=== PATIENT | male | born 1965 | race Caucasian/White ===

== ENCOUNTER 2017-06-28 01:59 | Inpatient (IN) | payer BC ==
--- NOTE | 2017-06-28 02:23 | ED ---
General Adult HPI - General Chief complaint: GI Bleed Stated complaint: blood in stool Time Seen by Provider: 06/28/17 02:12 Source: patient, RN notes reviewed, old records reviewed Mode of arrival: ambulatory - History of Present Illness Initial comments: 52-year-old male presents for evaluation of rectal bleeding. Patient was at work, had used the restroom, had one large episode of bright red blood. There was no stool at this time, just gas according to the patient. Patient states he has had some intermittent bleeding over the past several days. He does have hemorrhoids. Patient denies any abdominal pain or rectal pain with this episode. No recent history of constipation. Patient states he had a colonoscopy several years ago though issues that he is aware of. Patient has past medical history of CAD, atrial fibrillation, he is currently on Eliquis. Denies chest pain, denies palpitations, denies shortness of breath. - Related Data Home Medications Medication Instructions Recorded Confirmed ALPRAZolam 0.5 mg PO TID 07/25/14 06/28/17 Cyanocobalamin [Vitamin B-12] 1,000 mcg PO DAILY 07/25/14 06/28/17 Multivitamin [Men's Multi-Vitamin] 1 tab PO DAILY 07/25/14 06/28/17 Aspirin 81 mg PO DAILY 10/24/14 06/28/17 Atorvastatin [Lipitor] 80 mg PO DAILY 10/24/14 06/28/17 Apixaban [Eliquis] 5 mg PO BID 03/31/17 06/28/17 Flecainide [Tambocor] 50 mg PO Q12HR 06/28/17 06/28/17 Previous Rx's Medication Instructions Recorded Nitroglycerin Sl Tabs [Nitrostat] 0.4 mg SUBLINGUAL Q5M PRN #25 tab 07/27/14 Losartan [Cozaar] 50 mg PO DAILY #90 tab 03/31/17 Metoprolol Succinate [Toprol XL] 50 mg PO DAILY #90 tab.er.24h 03/31/17 Allergies Allergy/AdvReac Type Severity Reaction Status Date / Time Penicillins Allergy Unknown Verified 03/30/17 10:59 Childhood Review of Systems ROS Statement: Those systems with pertinent positive or pertinent negative responses have been documented in the HPI. ROS Other: All systems not noted in ROS Statement are negative. Past Medical History Past Medical History: Atrial Fibrillation, Hyperlipidemia, Hypertension Additional Past Medical History / Comment(s): 07/26/14 Pt admitted to [facility] care following RCA stenting for chest pain. Other HX: TIAGO HEELS RECENT STERIOD INJECTIONS 2 weks ago due to heel pain from falling arches causing heel muscle stretch. History of Any Multi-Drug Resistant Organisms: None Reported Past Surgical History: Ablation, Heart Catheterization With Stent Additional Past Surgical History / Comment(s): 07/26/14 RCA stenting Past Anesthesia/Blood Transfusion Reactions: No Reported Reaction Date of Last Stent Placement:: 07/26/14 Past Psychological History: Anxiety Smoking Status: Former smoker Past Alcohol Use History: Daily Past Drug Use History: None Reported - Past Family History Father Family Medical History: CVA/TIA Additional Family Medical History / Comment(s): Father of brain stem CVA Mother Family Medical History: Cancer Additional Family Medical History / Comment(s): Mother is living. General Exam General appearance: alert, in no apparent distress Head exam: Present: atraumatic, normocephalic Eye exam: Present: normal appearance, PERRL, EOMI ENT exam: Present: normal exam Neck exam: Present: normal inspection. Absent: tenderness, meningismus Respiratory exam: Present: normal lung sounds bilaterally. Absent: respiratory distress, wheezes Cardiovascular Exam: Present: regular rate, normal rhythm GI/Abdominal exam: Present: soft. Absent: distended, tenderness, guarding, rebound Rectal exam: Present: normal rectal tone, hemorrhoids (External hemorrhoid, no active bleeding). Absent: black stool, bloody stool, fecal impaction Extremities exam: Present: normal inspection, normal capillary refill. Absent: pedal edema Neurological exam: Present: alert, oriented X3, CN II-XII intact. Absent: motor sensory deficit Psychiatric exam: Present: normal affect, normal mood Skin exam: Present: warm, dry, intact. Absent: cyanosis, diaphoretic Course Vital Signs 06/28/17 06/28/17 06/28/17 02:01 03:20 03:38 Temperature 98.9 F Pulse Rate 97 130 H 130 H Respiratory 18 16 19 Rate Blood Pressure 145/80 134/107 150/111 O2 Sat by Pulse 98 95 95 Oximetry EKG Findings - EKG Comments: EKG Findings:: EKG shows atrial flutter with variable AV block and PVC, there is a ventricular rate of 139, QRS duration 84, QTC 407, no ST segment elevation Medical Decision Making - Medical Decision Making 52-year-old male presenting with GI bleed. On examination patient does have external hemorrhoids, no active bleeding at the time my evaluation. Hemoglobin is 15.0 which is stable. Other laboratory studies are unremarkable. While in the emergency Department patient does go into a flutter with rapid ventricular response rate of 140s. Blood pressure remained stable. He is currently on flecainide and metoprolol, no recent changes in medication. He did take his medications today. He is asymptomatic, no chest pain, no dyspnea, no palpitations. IV metoprolol and heart rate is improving. Patient will be admitted for GI consultation for hematochezia and cardiology consultation for atrial flutter with RVR. - Lab Data Result diagrams: 06/28/17 02:25 06/28/17 02:25 Lab Results 06/28/17 06/28/17 06/28/17 Range/Units 02:25 02:25 02:25 WBC 5.2 (3.8-10.6) k/uL RBC 4.60 (4.30-5.90) m/uL Hgb 15.0 (13.0-17.5) gm/dL Hct 42.7 (39.0-53.0) % MCV 92.9 (80.0-100.0) fL MCH 32.6 (25.0-35.0) pg MCHC 35.1 (31.0-37.0) g/dL RDW 12.3 (11.5-15.5) % Plt Count 153 (150-450) k/uL Neutrophils % 55 % Lymphocytes % 27 % Monocytes % 12 % Eosinophils % 1 % Basophils % 1 % Neutrophils # 2.9 (1.3-7.7) k/uL Lymphocytes # 1.4 (1.0-4.8) k/uL Monocytes # 0.6 (0-1.0) k/uL Eosinophils # 0.1 (0-0.7) k/uL Basophils # 0.1 (0-0.2) k/uL PT 10.2 (9.0-12.0) sec INR 1.0 (<1.2) APTT 26.4 (22.0-30.0) sec Sodium 140 (137-145) mmol/L Potassium 4.1 (3.5-5.1) mmol/L Chloride 103 (98-107) mmol/L Carbon Dioxide 25 (22-30) mmol/L Anion Gap 12 mmol/L BUN 16 (9-20) mg/dL Creatinine 0.70 (0.66-1.25) mg/dL Est GFR (CKD-EPI)AfAm >90 (>60 ml/min/1.73 sqM) Est GFR (CKD-EPI)NonAf >90 (>60 ml/min/1.73 sqM) Glucose 112 H (74-99) mg/dL Plasma Lactic Acid Humberto (0.7-2.0) mmol/L Calcium 9.9 (8.4-10.2) mg/dL Magnesium 1.8 (1.6-2.3) mg/dL Total Bilirubin 1.4 H (0.2-1.3) mg/dL AST 39 (17-59) U/L ALT 25 (21-72) U/L Alkaline Phosphatase 70 (38-126) U/L Total Protein 7.1 (6.3-8.2) g/dL Albumin 4.4 (3.5-5.0) g/dL Blood Type Blood Type Recheck Antibody Screen Spec Expiration Date 06/28/17 06/28/17 Range/Units 02:36 02:36 WBC (3.8-10.6) k/uL RBC (4.30-5.90) m/uL Hgb (13.0-17.5) gm/dL Hct (39.0-53.0) % MCV (80.0-100.0) fL MCH (25.0-35.0) pg MCHC (31.0-37.0) g/dL RDW (11.5-15.5) % Plt Count (150-450) k/uL Neutrophils % % Lymphocytes % % Monocytes % % Eosinophils % % Basophils % % Neutrophils # (1.3-7.7) k/uL Lymphocytes # (1.0-4.8) k/uL Monocytes # (0-1.0) k/uL Eosinophils # (0-0.7) k/uL Basophils # (0-0.2) k/uL PT (9.0-12.0) sec INR (<1.2) APTT (22.0-30.0) sec Sodium (137-145) mmol/L Potassium (3.5-5.1) mmol/L Chloride (98-107) mmol/L Carbon Dioxide (22-30) mmol/L Anion Gap mmol/L BUN (9-20) mg/dL Creatinine (0.66-1.25) mg/dL Est GFR (CKD-EPI)AfAm (>60 ml/min/1.73 sqM) Est GFR (CKD-EPI)NonAf (>60 ml/min/1.73 sqM) Glucose (74-99) mg/dL Plasma Lactic Acid Humberto 1.6 (0.7-2.0) mmol/L Calcium (8.4-10.2) mg/dL Magnesium (1.6-2.3) mg/dL Total Bilirubin (0.2-1.3) mg/dL AST (17-59) U/L ALT (21-72) U/L Alkaline Phosphatase (38-126) U/L Total Protein (6.3-8.2) g/dL Albumin (3.5-5.0) g/dL Blood Type A Positive Blood Type Recheck CABO Indicated Antibody Screen NEGATIVE Spec Expiration Date 07/01/2017 - 5874 Critical Care Time Critical Care Time: Yes Total Critical Care Time: 35 Disposition Clinical Impression: Hematochezia, Atrial flutter with rapid ventricular response Disposition: ADMITTED IP TO THIS [facility] Condition: Stable Referrals: Carrington Abdi DO [Primary Care Provider] - 1-2 days Decision to Admit Reason: Admit from EC Decision Date: 06/28/17 Decision Time: 03:48
[2017-06-28 02:34] LABS: Basophils # (A) 0.1 k/uL (0-0.2); Basophils % (A) 1 %; Eosinophils # (A) 0.1 k/uL (0-0.7); Eosinophils % (A) 1 %; HCT 42.7 % (39.0-53.0); Lymphocytes # (A) 1.4 k/uL (1.0-4.8); Lymphocytes % (A) 27 %; MCH 32.6 pg (25.0-35.0); MCHC 35.1 g/dL (31.0-37.0); MCV 92.9 fL (80.0-100.0); Mean Platelet Volume 8.6; Monocytes # (A) 0.6 k/uL (0-1.0); Monocytes % (A) 12 %; Neutrophils # (A) 2.9 k/uL (1.3-7.7); Neutrophils % (A) 55 %; Platelet Count 153 k/uL (150-450); RDW 12.3 % (11.5-15.5); WBC 5.2 k/uL (3.8-10.6)
[2017-06-28 02:43] LABS: ALT 25 U/L (21-72); AST 39 U/L (17-59); Albumin 4.4 g/dL (3.5-5.0); Alkaline Phosphatase 70 U/L (38-126); Anion Gap 12 mmol/L; Blood Urea Nitrogen 16 mg/dL (9-20); Calcium 9.9 mg/dL (8.4-10.2); Carbon Dioxide 25 mmol/L (22-30); Chloride 103 mmol/L (98-107); Glucose 112 mg/dL (74-99); Magnesium 1.8 mg/dL (1.6-2.3); Potassium 4.1 mmol/L (3.5-5.1); Sodium 140 mmol/L (137-145); Total Bilirubin 1.4 mg/dL (0.2-1.3); Total Protein 7.1 g/dL (6.3-8.2)
[2017-06-28 02:48] LABS: Partial Thromboplastin Time 26.4 sec (22.0-30.0); Prothrombin Time 10.2 sec (9.0-12.0)
[2017-06-28] MEDS ORDERED: SODIUM CHLORIDE 0.9% 500 ML IV ONE (03:11)
[2017-06-28] MEDS: METOPROLOL TARTRATE 5 MG/5 ML VIAL IVP SCH ×10 (03:12→22:57)
[2017-06-28] MEDS ORDERED: NALOXONE 0.4 MG/ML 1 ML VIAL IV PRN (03:48)
[2017-06-28] MEDS: SODIUM CHLORIDE 0.9% 1,000 ML IV SCH ×2 (04:04→18:29)
[2017-06-28] MEDS: DILTIAZEM 50 MG in SODIUM CHLORIDE 0.9% 40 ML IV ONE ×2 (04:45→09:46)
[2017-06-28] MEDS ORDERED: METOPROLOL SUCCINATE (ER) 50 MG TAB.ER.24H PO SCH ×2 (09:00→21:00)
[2017-06-28] MEDS ORDERED: ATORVASTATIN 80 MG TAB PO SCH ×2 (09:00→21:00)
[2017-06-28] MEDS ORDERED: FLECAINIDE 50 MG TAB PO SCH (09:00)
--- NOTE | 2017-06-28 10:56 | P.CONS ---
History of Present Illness - Reason for Consult Consult date: 06/28/17 rectal bleeding Requesting physician: Carl Hemphill - History of Present Illness 52-year-old male with a past medical history of atrial fibrillation ablation maintained on aspirin Eliquis, cardiomyopathy, CAD PCI stent 2014, anxiety, internal hemorrhoids, hyperlipidemia, and hypertension. Patient presented with acute painless rectal bleeding that started yesterday at work. Patient stated he had a few bowel movements that were blood-tinged and when wiping witnessed a fair amount of blood on tissue. Hemoglobin 15. white count 5.2. He went 16. Creatinine 0.7. INR 1.0. Platelet 153. Colonoscopy October 2014 reported grade 2 internal hemorrhoids. Patient was placed on dual antiplatelet medications I year ago for his history of arrhythmia. Denies abdominal pain. No reports of fever chills hematemesis or melena. No recent NSAIDs or excessive usage of aspirin. Presently resting comfortably in the emergency room with heart rhythm in the 140s EKG reported atrial flutter. Review of Systems Constitutional: Denies fever, chills, sweats, weight gain, or loss. HEENT: Negative for migraines, blurred vision or loss, earaches, drainage, tinnitus, oral mucosal lesions, dysphagia, or odynophagia. Cardiac: CAD. Cardiac myopathy. Hypertension. Hyperlipidemia. History of atrial fibrillation. Respiratory: Negative for shortness of breath, hemoptysis, cough, or sputum production. Gastrointestinal: See HPI for pertinent findings. Genitourinary: Negative for hematuria, urgency, frequency, polyuria, dysuria, or penile discharge. Musculoskeletal: Negative for muscle aches, swelling, arthritis, and arthralgias. Neurologic: Negative for stroke or TIA. Endocrine: Negative for thyroid problems. Skin: Negative for rash or itching. Psychiatric: History of anxiety. Past Medical History Past Medical History: Atrial Fibrillation, Hyperlipidemia, Hypertension Additional Past Medical History / Comment(s): 07/26/14 Pt admitted to selective care following RCA stenting for chest pain. Other HX: TIAGO HEELS RECENT STERIOD INJECTIONS 2 weks ago due to heel pain from falling arches causing heel muscle stretch. History of Any Multi-Drug Resistant Organisms: None Reported Past Surgical History: Ablation, Heart Catheterization With Stent Additional Past Surgical History / Comment(s): 07/26/14 RCA stenting Past Anesthesia/Blood Transfusion Reactions: No Reported Reaction Date of Last Stent Placement:: 07/26/14 Past Psychological History: Anxiety Smoking Status: Former smoker Past Alcohol Use History: Daily Past Drug Use History: None Reported - Past Family History Father Family Medical History: CVA/TIA Additional Family Medical History / Comment(s): Father of brain stem CVA Mother Family Medical History: Cancer Additional Family Medical History / Comment(s): Mother is living. Medications and Allergies Home Medications Medication Instructions Recorded Confirmed Type ALPRAZolam 0.5 mg PO TID PRN 07/25/14 06/28/17 History Cyanocobalamin [Vitamin B-12] 1,000 mcg PO DAILY 07/25/14 06/28/17 History Multivitamin [Men's Multi-Vitamin] 1 tab PO DAILY 07/25/14 06/28/17 History Nitroglycerin Sl Tabs [Nitrostat] 0.4 mg SUBLINGUAL Q5M PRN #25 tab 07/27/14 Rx Aspirin 81 mg PO DAILY 10/24/14 06/28/17 History Atorvastatin [Lipitor] 80 mg PO DAILY 10/24/14 06/28/17 History Apixaban [Eliquis] 5 mg PO BID 03/31/17 06/28/17 History Ascorbic Acid [Vitamin C] 1,000 mg PO DAILY 06/28/17 06/28/17 History Flecainide [Tambocor] 50 mg PO Q12HR 06/28/17 06/28/17 History Losartan [Cozaar] 50 mg PO HS 06/28/17 06/28/17 History Metoprolol Succinate (ER) [Toprol 75 mg PO DAILY 06/28/17 06/28/17 History Xl] Allergies Allergy/AdvReac Type Severity Reaction Status Date / Time Penicillins Allergy Unknown Verified 06/28/17 07:27 Childhood Physical Exam Vitals: Vital Signs Temp Pulse Resp BP Pulse Ox 06/28/17 06:00 105 H 15 120/98 95 06/28/17 05:00 134 H 14 139/103 96 06/28/17 04:00 130 H 16 146/102 96 06/28/17 03:38 130 H 19 150/111 95 06/28/17 03:20 130 H 16 134/107 95 06/28/17 02:01 98.9 F 97 18 145/80 98 Intake and Output 06/27/17 06/28/17 06/28/17 22:59 06:59 14:59 Intake Total 10 18.833 Balance 10 18.833 Intake: Intake, IV Titration 10 18.833 Amount Diltiazem 50 mg In Sodium 10 18.833 Chloride 0.9% 40 ml @ 5 MG/HR 5 mls/hr IV .Q10H ONE Rx#:[id number] Other: Weight 70.307 kg General appearance: The patient is alert, oriented, in no acute distress. HET: Head is normocephalic and atraumatic. Pupils are equal and reactive. Oropharynx is clear without lesions. Neck: Supple without lymphadenopathy. Trachea midline. Heart: S1 S2. Regular rate and rhythm. Lungs: No crackles or wheezes are heard. Abdomen: Soft, nontender, nondistended with bowel sounds. No peritoneal signs. No palpable organomegaly or masses. Extremities: Normal skin color and turgor. No cyanosis, rash, ulceration, clubbing, or edema. Radial and pedal pulses are 2/4 bilaterally. Neurological: No focal deficits. Strength and sensation are grossly intact. Results CBC & Chem 7: 06/28/17 02:25 06/28/17 02:25 Labs: Abnormal Lab Results - Last 24 Hours (Table) 06/28/17 Range/Units 02:25 Glucose 112 H (74-99) mg/dL Total Bilirubin 1.4 H (0.2-1.3) mg/dL Assessment and Plan (1) Rectal bleeding Narrative/Plan: 52-year-old male with a history of CAD cardiomyopathy and arrhythmia maintained on dual antiplatelet therapy presents with arrhythmia and painless rectal bleeding with history of grade 2 internal hemorrhoids status post colonoscopy October 2014. Suspect rectal bleeding is perirectal in nature. Current Visit: Yes Status: Acute Code(s): K62.5 - HEMORRHAGE OF ANUS AND RECTUM SNOMED Code(s): 72998477 Plan: 1. Anusol suppository 25 mg twice daily. 2. Diet as tolerated. Inpatient endoscopic exams are not planned at this time but contingent on clinical course. CBC monitoring. Cardiology consultation. We'll continue to follow with you. Thank you for this kind referral and the opportunity to participate in the care of your patient. This consultation was discussed with Dr. Sethi. The impression and plan of care have been directed as dictated.
[2017-06-28] MEDS ORDERED: METOPROLOL SUCCINATE (ER) 50 MG TAB.ER.24H PO STA (11:10)
[2017-06-28] MEDS ORDERED: FLECAINIDE 50 MG TAB PO STA (11:10)
--- NOTE | 2017-06-28 11:29 | CONS ---
CONSULTATION CHIEF COMPLAINT: Atrial flutter with rapid ventricular rate. Hemant is a 52-year-old gentleman with history of paroxysmal atrial flutter, status post unsuccessful ablation, hypertension, dyslipidemia, and prior history of lower GI bleed, who presented to the hospital having had 2 episodes of rectal bleeding while at work. This was sudden onset, profuse and then resolved spontaneously. At the time of my evaluation, he appears comfortable at rest and is free of symptoms. Remains in atrial flutter with poorly controlled ventricular rate. The patient has had a colonoscopy in the past and was thought to be normal. Patient is currently on Eliquis for his atrial flutter. PAST MEDICAL HISTORY: Significant for hypertension, atrial tachyarrhythmia status post ablation, dyslipidemia. CURRENT MEDICATIONS: Include Xanax, aspirin, atorvastatin, Eliquis, flecainide 50 b.i.d., Toprol-XL 50 mg daily, losartan 50 mg daily. ALLERGIES: Allergic to PENICILLIN. FAMILY HISTORY: Negative for premature coronary artery disease. SOCIAL HISTORY: Negative for smoking and history of drug abuse. REVIEW OF SYSTEMS: HEENT is unremarkable. CARDIAC: As described above. RESPIRATORY: Negative. GI: Significant for rectal bleeding. GENITOURINARY: Negative. MUSCULOSKELETAL: Significant for arthritis. PSYCHOSOCIAL: Negative. ENDOCRINE: Negative. DERMATOLOGIC: Negative. CONSTITUTIONAL: Negative. ONCOLOGICAL: Negative. Rest of the system review is not relevant. PAST SURGICAL HISTORY: Significant for ablation and apparently stenting of the right coronary artery. PHYSICAL EXAM: Patient is comfortable at rest. Heart rate is varying between 105 to 130 beats per minute. Blood pressure is 120/98, respiratory rate is 18, O2 sat is 95% on room air. There is no jugular venous distention. Carotid upstroke is normal. There is no bruit. Chest exam reveals diminished air entry at the bases. Heart exam reveals first and second heart sounds. Regular rhythm. Abdomen is soft, nontender. Exam of extremities did not reveal any edema. Peripheral pulses are palpable LABS: Show that the hemoglobin is normal at 15. Potassium is 4.1, creatinine is 0.7. AST and ALT are within normal limits. ASSESSMENT: 1. Atypical atrial flutter with rapid ventricular rate. 2. Lower gastrointestinal bleed, probably is related to his underlying hemorrhoids. Hemoglobin is stable. I am going to increase the dose of Tambocor to 100 mg b.i.d., increase the dose of Toprol-XL to 100 mg daily. Stop the intravenous Cardizem, cut down the dose of losartan and to hold the Eliquis and aspirin for today and once the heart rate is better controlled, we should be able to let him go home tomorrow. ACE / LESLIE: [id number] /
[2017-06-28 13:18] LABS: Basophils % (A) 1 %; Eosinophils # (A) 0.1 k/uL (0-0.7); Eosinophils % (A) 1 %; HCT 43.3 % (39.0-53.0); HGB 14.3 gm/dL (13.0-17.5); Lymphocytes # (A) 1.2 k/uL (1.0-4.8); Lymphocytes % (A) 22 %; MCV 94.1 fL (80.0-100.0); Mean Platelet Volume 10.1; Monocytes # (A) 0.5 k/uL (0-1.0); Monocytes % (A) 10 %; Neutrophils # (A) 3.4 k/uL (1.3-7.7); Neutrophils % (A) 63 %; Platelet Count 145 k/uL (150-450); RDW 12.4 % (11.5-15.5); WBC 5.3 k/uL (3.8-10.6)
[2017-06-28 13:30] LABS: Anion Gap 8 mmol/L; Blood Urea Nitrogen 13 mg/dL (9-20); Calcium 9.3 mg/dL (8.4-10.2); Carbon Dioxide 28 mmol/L (22-30); Chloride 102 mmol/L (98-107); Glucose 86 mg/dL (74-99); Potassium 4.1 mmol/L (3.5-5.1); Sodium 138 mmol/L (137-145)
[2017-06-28] MEDS ORDERED: DILTIAZEM 5 MG/1 ML (25ML VIAL) IV ONE ×2 (14:23)
[2017-06-28] MEDS ORDERED: SODIUM CHLORIDE 0.9% 100 ML BAG ONE (14:23)
[2017-06-28] MEDS ORDERED: NITROGLYCERIN SL TABS 0.4 MG TAB SUBLINGUAL PRN (15:25)
[2017-06-28] MEDS ORDERED: ALPRAZolam 0.5 MG TAB PO PRN (15:25)
--- NOTE | 2017-06-28 15:50 | P.HPIM ---
History of Present Illness Patient is a 52-year-old gentleman with known history of atrial fibrillation and is on Eliquis 5 mg twice a day along with aspirin for the carotid disease and PCI and stent placement in 2014 came in with complaints of 1 episode of significant hematochezia with the les red blood per rectum patient had history of ever voids in the past had a colonoscopy in 2014 which showed grade 2 hemorrhoids patient did not have any bleeding here today. Patient did take his heart rate control medications last night and did not receive any of his heart rate control medications here subsequently went into atrial fibrillation patient's dose of flecainide and metoprolol were increased patient is mildly hypotensive expected to improve with improvement in his heart rate. Patient had history of atrial fibrillation ablation procedure in the past which was failed and patient subsequently started on flecainide and metoprolol. Since patient did not have any bright red blood per rectum patient was initiated back on anti-coagulation by cardiology although aspirin is being held. Patient denied any fever chills nausea vomiting. Review of Systems REVIEW OF SYSTEMS: CONSTITUTIONAL: No fever, no malaise, no fatigue. HEENT: No recent visual problems or hearing problems. Denied any sore throat. CARDIOVASCULAR: No chest pain, orthopnea, PND, no palpitations, no syncope. PULMONARY: No shortness of breath, no cough, no hemoptysis. GASTROINTESTINAL: As mentioned in HPI NEUROLOGICAL: No headaches, no weakness, no numbness. HEMATOLOGICAL: Denies any bleeding or petechiae. GENITOURINARY: Denies any burning micturition, frequency, or urgency. MUSCULOSKELETAL/RHEUMATOLOGICAL: Denies any joint pain, swelling, or any muscle pain. ENDOCRINE: Denies any polyuria or polydipsia. The rest of the 14-point review of systems is negative. Past Medical History Past Medical History: Atrial Fibrillation, Coronary Artery Disease (CAD), Hyperlipidemia, Hypertension Additional Past Medical History / Comment(s): PVCs, hemorrhoids with spotty bleeding at times, bilateral heel pain/fallen arches. History of Any Multi-Drug Resistant Organisms: None Reported Past Surgical History: Ablation, Cardiac Ablation, Heart Catheterization With Stent Additional Past Surgical History / Comment(s): 03/31/17 cardica ablation, PCI with RCA stenting, 2014 colonoscopy with benign polypectomy Past Anesthesia/Blood Transfusion Reactions: No Reported Reaction Date of Last Stent Placement:: 07/26/14 Smoking Status: Former smoker - Past Family History Father Family Medical History: CVA/TIA Additional Family Medical History / Comment(s): Father of brain stem CVA at the age of 44 yrs. Mother Family Medical History: Cancer Additional Family Medical History / Comment(s): Mother is living. She had vaginal cancer with surgery. Medications and Allergies Home Medications Medication Instructions Recorded Confirmed Type ALPRAZolam 0.5 mg PO TID PRN 07/25/14 06/28/17 History Cyanocobalamin [Vitamin B-12] 1,000 mcg PO DAILY 07/25/14 06/28/17 History Multivitamin [Men's Multi-Vitamin] 1 tab PO DAILY 07/25/14 06/28/17 History Nitroglycerin Sl Tabs [Nitrostat] 0.4 mg SUBLINGUAL Q5M PRN #25 tab 07/27/14 Rx Aspirin 81 mg PO DAILY 10/24/14 06/28/17 History Atorvastatin [Lipitor] 80 mg PO DAILY 10/24/14 06/28/17 History Apixaban [Eliquis] 5 mg PO BID 03/31/17 06/28/17 History Ascorbic Acid [Vitamin C] 1,000 mg PO DAILY 06/28/17 06/28/17 History Flecainide [Tambocor] 50 mg PO Q12HR 06/28/17 06/28/17 History Losartan [Cozaar] 50 mg PO HS 06/28/17 06/28/17 History Metoprolol Succinate (ER) [Toprol 75 mg PO DAILY 06/28/17 06/28/17 History Xl] Allergies Allergy/AdvReac Type Severity Reaction Status Date / Time Penicillins Allergy Unknown Verified 06/28/17 07:27 Childhood Physical Exam Vitals: Vital Signs Temp Pulse Pulse Resp BP BP Pulse Ox 06/28/17 15:34 97.8 F 142 H 16 103/58 97 06/28/17 13:35 96 18 103/56 97 06/28/17 12:00 98.5 F 114 H 16 112/86 95 06/28/17 09:48 97.7 F 144 H 16 130/94 96 06/28/17 06:00 105 H 15 120/98 95 06/28/17 05:00 134 H 14 139/103 96 06/28/17 04:00 130 H 16 146/102 96 06/28/17 03:38 130 H 19 150/111 95 06/28/17 03:20 130 H 16 134/107 95 06/28/17 02:01 98.9 F 97 18 145/80 98 Intake and Output 06/28/17 06/28/17 06/28/17 06:59 14:59 22:59 Intake Total 10 405.833 Balance 10 405.833 Intake: Intake, IV Titration 10 168.833 Amount Diltiazem 50 mg In Sodium 10 18.833 Chloride 0.9% 40 ml @ 5 MG/HR 5 mls/hr IV .Q10H ONE Rx#:[id number] Sodium Chloride 0.9% 1, 150 000 ml @ 75 mls/hr IV . [id number] PRINCESS Rx#:[id number] Oral 237 Other: Weight 70.307 kg PHYSICAL EXAMINATION: GENERAL: The patient is alert and oriented x3, not in any acute distress. Well developed, well nourished. HEENT: Pupils are round and equally reacting to light. EOMI. No scleral icterus. No conjunctival pallor. Normocephalic, atraumatic. No pharyngeal erythema. No thyromegaly. CARDIOVASCULAR: S1 and S2 present. No murmurs, rubs, or gallops. Patient is tachycardic irregularly irregular rhythm. PULMONARY: Chest is clear to auscultation, no wheezing or crackles. ABDOMEN: Soft, nontender, nondistended, normoactive bowel sounds. No palpable organomegaly. MUSCULOSKELETAL: No joint swelling or deformity. EXTREMITIES: No cyanosis, clubbing, or pedal edema. NEUROLOGICAL: Gross neurological examination did not reveal any focal deficits. SKIN: No rashes. Results CBC & Chem 7: 06/28/17 13:03 06/28/17 13:03 Labs: Abnormal Lab Results - Last 24 Hours (Table) 06/28/17 06/28/17 Range/Units 02:25 13:03 Plt Count 145 L (150-450) k/uL Glucose 112 H (74-99) mg/dL Total Bilirubin 1.4 H (0.2-1.3) mg/dL Thrombosis Risk Factor Assmnt - Choose All That Apply Any of the Below Risk Factors Present?: Yes Each Factor Represents 1 point: Age 41-60 years Other Risk Factors: No Other congenital or acquired thrombophilia - If yes, enter type in comment: No Thrombosis Risk Factor Assessment Total Risk Factor Score: 1 Thrombosis Risk Factor Assessment Level: Low Risk Assessment and Plan Plan: -Lower GI bleed with mild acute blood loss anemia: Probably from hemorrhoids bleeding is self-limited now patient is being initiated back on anti- correlation. -Atrial fibrillation with rapid and regular rate probably precipitated by GI bleed, patient is presently an increase the dose of flecainide and metoprolol which will be continued. -Coronary artery disease with previous PCI and stenting patient may and up needing aspirin at home although patient is not on Plavix at this time. -Hyperlipidemia -Hypertension: Patient is presently hypotensive secondary to atrial fibrillation and GI bleed
[2017-06-28] MEDS: APIXABAN 5 MG TAB PO SCH (16:27)
[2017-06-28] MEDS: HYDROCORTISONE SUPPOSITORY 25 MG SUPP RECTAL SCH (20:17)
[2017-06-28] MEDS: FLECAINIDE 50 MG TAB PO SCH (20:17)
[2017-06-28 22:13] VITALS: RESP 16
[2017-06-29] MEDS: METOPROLOL TARTRATE 5 MG/5 ML VIAL IVP SCH ×5 (00:50→00:56)
[2017-06-29] MEDS: SODIUM CHLORIDE 0.9% 1,000 ML IV SCH (02:55)
[2017-06-29 06:46] LABS: Basophils % (A) 1 %; Eosinophils # (A) 0.1 k/uL (0-0.7); Eosinophils % (A) 3 %; HCT 41.9 % (39.0-53.0); HGB 13.4 gm/dL (13.0-17.5); Lymphocytes % (A) 26 %; MCH 30.7 pg (25.0-35.0); MCV 95.9 fL (80.0-100.0); Mean Platelet Volume 9.5; Monocytes # (A) 0.4 k/uL (0-1.0); Monocytes % (A) 12 %; Neutrophils % (A) 56 %; Platelet Count 131 k/uL (150-450); RBC 4.37 m/uL (4.30-5.90); RDW 12.3 % (11.5-15.5); WBC 3.7 k/uL (3.8-10.6)
[2017-06-29 07:07] LABS: ALT 25 U/L (21-72); AST 32 U/L (17-59); Albumin 3.9 g/dL (3.5-5.0); Alkaline Phosphatase 57 U/L (38-126); Anion Gap 5 mmol/L; Blood Urea Nitrogen 16 mg/dL (9-20); Calcium 9.8 mg/dL (8.4-10.2); Carbon Dioxide 30 mmol/L (22-30); Chloride 104 mmol/L (98-107); Glucose 101 mg/dL (74-99); Magnesium 1.8 mg/dL (1.6-2.3); Sodium 139 mmol/L (137-145); Total Bilirubin 1.3 mg/dL (0.2-1.3); Total Protein 6.2 g/dL (6.3-8.2)
[2017-06-29] MEDS ORDERED: METOPROLOL SUCCINATE (ER) 50 MG TAB.ER.24H PO SCH (09:00)
[2017-06-29] MEDS ORDERED: METOPROLOL SUCCINATE (ER) 100 MG TAB.ER.24H PO SCH (09:00)
[2017-06-29] MEDS: FLECAINIDE 50 MG TAB PO SCH (09:09)
[2017-06-29] MEDS: HYDROCORTISONE SUPPOSITORY 25 MG SUPP RECTAL SCH (09:09)
[2017-06-29] MEDS: APIXABAN 5 MG TAB PO SCH (09:09)
--- NOTE | 2017-06-29 09:14 | P.PN ---
Subjective Progress Note Date: 06/29/17 Principal diagnosis: rectal bleeding arrhythmia No bleeding. Nonbloody bowel movement this morning. Anticipating discharge. Denies abdominal pain. Hemoglobin 13.4. Objective - Vital Signs Vital signs: Vital Signs Temp 97 F L 06/29/17 04:00 Pulse 71 06/29/17 04:00 Resp 16 06/29/17 04:00 BP 125/70 06/29/17 04:00 Pulse Ox 97 06/29/17 04:00 Intake & Output 06/28/17 06/29/17 06/29/17 18:59 06:59 18:59 Intake Total 405.833 380 100 Balance 405.833 380 100 Weight 70.3 kg Intake: IV 20 0.9 20 Intake, IV Titration 168.833 Amount Diltiazem 50 mg In Sodium 18.833 Chloride 0.9% 40 ml @ 5 MG/HR 5 mls/hr IV .Q10H ONE Rx#:[id number] Sodium Chloride 0.9% 1, 150 000 ml @ 75 mls/hr IV . [id number] PRINCESS Rx#:[id number] Oral 237 360 100 Other: # Voids 1 3 1 # Bowel Movements 1 - Exam General appearance: The patient is alert, oriented, in no acute distress. HET: Head is normocephalic and atraumatic. Pupils are equal and reactive. Oropharynx is clear without lesions. Neck: Supple without lymphadenopathy. Trachea midline. Heart: S1 S2. Regular rate and rhythm. Lungs: No crackles or wheezes are heard. Abdomen: Soft, nontender, nondistended with bowel sounds. No peritoneal signs. No palpable organomegaly or masses. Extremities: Normal skin color and turgor. No cyanosis, rash, ulceration, clubbing, or edema. Radial and pedal pulses are 2/4 bilaterally. Neurological: No focal deficits. Strength and sensation are grossly intact. - Labs CBC & Chem 7: 06/29/17 06:24 06/29/17 06:24 Labs: Abnormal Lab Results - Last 24 Hours (Table) 06/28/17 06/29/17 06/29/17 Range/Units 13:03 06:24 06:24 WBC 3.7 L (3.8-10.6) k/uL Plt Count 145 L 131 L (150-450) k/uL Glucose 101 H (74-99) mg/dL Total Protein 6.2 L (6.3-8.2) g/dL Assessment and Plan (1) Rectal bleeding Narrative/Plan: 52-year-old male with a history of CAD cardiomyopathy and arrhythmia maintained on dual antiplatelet therapy presents with arrhythmia and painless rectal bleeding with history of grade 2 internal hemorrhoids status post colonoscopy October 2014. Suspect rectal bleeding is perirectal in nature. Current Visit: Yes Status: Acute Code(s): K62.5 - HEMORRHAGE OF ANUS AND RECTUM SNOMED Code(s): 02124874 Plan: 1. Rectal bleeding has improved. 2. Discharge per medicine and cardiology. 3. Anusol HC 25 mg daily at bedtime as needed. Return to GI office in 2-3 weeks for reevaluation. Assessment and plan of care discussed with Dr. Sethi
[2017-06-29 09:30] VITALS: BP 133/80; PULSE 67; TEMP 97.1
--- NOTE | 2017-06-29 12:16 | P.PN ---
Subjective Progress Note Date: 06/29/17 This is a 52-year-old gentleman with history of paroxysmal atrial flutter, status post successful ablation, hypertension, hyperlipidemia, prior history of lower GI bleeding presented to the hospital after having 2 episodes of rectal bleeding while at work. They were of sudden onset, perfuse, then resolved spontaneously. Patient was seen in consultation by Dr. Ahuja yesterday. One dose of Eliquis had been placed on hold. Patient's hemoglobin remained stable, bleeding was likely secondary to hemorrhoids. Eliquis has been resumed. Patient is hemodynamically stable. Objective - Vital Signs Vital signs: Vital Signs Temp 97.1 F L 06/29/17 08:00 Pulse 67 06/29/17 08:00 Resp 16 06/29/17 08:00 BP 133/80 06/29/17 08:00 Pulse Ox 96 06/29/17 08:00 Intake & Output 06/28/17 06/29/17 06/29/17 18:59 06:59 18:59 Intake Total 405.833 380 100 Balance 405.833 380 100 Weight 70.3 kg Intake: IV 20 0.9 20 Intake, IV Titration 168.833 Amount Diltiazem 50 mg In Sodium 18.833 Chloride 0.9% 40 ml @ 5 MG/HR 5 mls/hr IV .Q10H ONE Rx#:[id number] Sodium Chloride 0.9% 1, 150 000 ml @ 75 mls/hr IV . [id number] PRINCESS Rx#:[id number] Oral 237 360 100 Other: # Voids 1 3 1 # Bowel Movements 1 - Exam PHYSICAL EXAMINATION: HEENT: Head is atraumatic, normocephalic. Pupils equal, round. Neck is supple. There is no elevated jugular venous pressure. HEART EXAMINATION: Heart S1, S2 normal. No murmur or gallop heard. CHEST EXAMINATION: Lungs are clear to auscultation and precussion. No chest wall tenderness is noted on palpation or with deep breathing. ABDOMEN: Soft, nontender. Bowel sounds are heard. No organomegaly noted. EXTREMITIES: 2+ peripheral pulses with no evidence of peripheral edema and no calf tenderness noted. NEUROLOGIC patient is awake, alert and oriented -3. . - Labs CBC & Chem 7: 06/29/17 06:24 06/29/17 06:24 Labs: Abnormal Lab Results - Last 24 Hours (Table) 06/28/17 06/29/17 06/29/17 Range/Units 13:03 06:24 06:24 WBC 3.7 L (3.8-10.6) k/uL Plt Count 145 L 131 L (150-450) k/uL Glucose 101 H (74-99) mg/dL Total Protein 6.2 L (6.3-8.2) g/dL Assessment and Plan Plan: Assessment and plan #1 chronic, atypical atrial flutter with rapid ventricular response, rate under better control today. #2 lower GI bleed, likely secondary to hemorrhoids, hemoglobin has remained stable. Plan From cardiology's perspective, patient may be able to be discharged once cleared by the primary. We will continue Toprol 100 mg daily, TM a core 100 mg twice a day, Eliquis has also been resumed. A follow-up appointment will be made for the patient to see Dr. Cabrera in the office post discharge. DNP note has been reviewed, I agree with a documented findings and plan of care. Patient was seen and examined.
--- NOTE | 2017-06-29 13:03 | P.DS ---
Providers Date of admission: 06/28/17 03:48 Attending physician: Carl Hemphill Consults: 06/28/17 03:49 Consult Physician Routine Consulting Provider: Daniele Cabrera Consult Reason/Comments: Atrial flutter Do you want consulting provider notified?: Yes, Notify in am Primary care physician: [facility] Course: 52-year-old gentleman with known history of atrial fibrillation and is on Eliquis 5 mg twice a day along with aspirin for the carotid disease and PCI and stent placement in 2014 came in with complaints of 1 episode of significant hematochezia with the les red blood per rectum patient had history of ever voids in the past had a colonoscopy in 2014 which showed grade 2 hemorrhoids patient did not have any bleeding here today. Patient did take his heart rate control medications last night and did not receive any of his heart rate control medications here subsequently went into atrial fibrillation patient's dose of flecainide and metoprolol were increased patient is mildly hypotensive expected to improve with improvement in his heart rate. Patient had history of atrial fibrillation ablation procedure in the past which was failed and patient subsequently started on flecainide and metoprolol. Since patient did not have any bright red blood per rectum patient was initiated back on anti-coagulation by cardiology although aspirin is being held. Patient denied any fever chills nausea vomiting. 06/29/2017 Patient's atrial fibrillation resolved patient is sinus rhythm at this time dose of flecanaide and metoprolol was increased. Patient doesn't have any more GI bleed GI bleed is secondary to hemorrhoids and patient is being discharged on Anusol cream. Patient will continue his anticoagulation and aspirin. PHYSICAL EXAMINATION: GENERAL: The patient is alert and oriented x3, not in any acute distress. Well developed, well nourished. HEENT: Pupils are round and equally reacting to light. EOMI. No scleral icterus. No conjunctival pallor. Normocephalic, atraumatic. No pharyngeal erythema. No thyromegaly. CARDIOVASCULAR: S1 and S2 present. No murmurs, rubs, or gallops. PULMONARY: Chest is clear to auscultation, no wheezing or crackles. ABDOMEN: Soft, nontender, nondistended, normoactive bowel sounds. No palpable organomegaly. MUSCULOSKELETAL: No joint swelling or deformity. EXTREMITIES: No cyanosis, clubbing, or pedal edema. NEUROLOGICAL: Gross neurological examination did not reveal any focal deficits. SKIN: No rashes. Vitals are stable. Assessment and Plan Plan: -Lower GI bleed with mild acute blood loss anemia: Probably from hemorrhoids bleeding is self-limited -Atrial fibrillation with rapid and regular rate probably precipitated by GI bleed, patient is presently an increase the dose of flecainide and metoprolol which will be continued. -Coronary artery disease with previous PCI and stenting -Hyperlipidemia -Hypertension: Patient is presently hypotensive secondary to atrial fibrillation and GI bleed Patient Condition at Discharge: Stable Plan - Discharge Summary Discharge Rx Participant: No New Discharge Prescriptions: New Hydrocortisone Acetate [Anusol-Hc] 25 mg RC HS PRN #14 supp.rect PRN Reason: Hemorrhoids Flecainide [Tambocor] 100 mg PO Q12HR #60 tab Metoprolol Succinate (ER) [Toprol XL] 100 mg PO DAILY #30 tab.er.24h Continue Multivitamin [Men's Multi-Vitamin] 1 tab PO DAILY Cyanocobalamin [Vitamin B-12] 1,000 mcg PO DAILY ALPRAZolam 0.5 mg PO TID PRN PRN Reason: Anxiety Nitroglycerin Sl Tabs [Nitrostat] 0.4 mg SUBLINGUAL Q5M PRN #25 tab PRN Reason: Chest Pain Aspirin 81 mg PO DAILY Atorvastatin [Lipitor] 80 mg PO DAILY Apixaban [Eliquis] 5 mg PO BID Losartan [Cozaar] 50 mg PO HS Ascorbic Acid [Vitamin C] 1,000 mg PO DAILY Discontinued Flecainide [Tambocor] 50 mg PO Q12HR Metoprolol Succinate (ER) [Toprol Xl] 75 mg PO DAILY Discharge Medication List ALPRAZolam 0.5 mg PO TID PRN 07/25/14 [History] Cyanocobalamin [Vitamin B-12] 1,000 mcg PO DAILY 07/25/14 [History] Multivitamin [Men's Multi-Vitamin] 1 tab PO DAILY 07/25/14 [History] Nitroglycerin Sl Tabs [Nitrostat] 0.4 mg SUBLINGUAL Q5M PRN #25 tab 07/27/14 [Rx ] Aspirin 81 mg PO DAILY 10/24/14 [History] Atorvastatin [Lipitor] 80 mg PO DAILY 07/16/15 [History] Apixaban [Eliquis] 5 mg PO BID 03/31/17 [History] Ascorbic Acid [Vitamin C] 1,000 mg PO DAILY 06/28/17 [History] Losartan [Cozaar] 50 mg PO HS 06/28/17 [History] Flecainide [Tambocor] 100 mg PO Q12HR #60 tab 06/29/17 [Rx] Hydrocortisone Acetate [Anusol-Hc] 25 mg RC HS PRN #14 supp.rect 06/29/17 [Rx] Metoprolol Succinate (ER) [Toprol XL] 100 mg PO DAILY #30 tab.er.24h 06/29/17 [ Rx] Follow up Appointment(s)/Referral(s): Daniele Cabrera MD [STAFF PHYSICIAN] - 3 Weeks (Spoke to receptionist [employer]. Office will call with appointment time) Carrington Abdi DO [Primary Care Provider] - 07/13/17 2:20 pm (Tuesday earliest available appointment) Ramila Ahuja MD [STAFF PHYSICIAN] - 07/20/17 2:45 pm Patient Instructions/Handouts: Atrial Flutter (DC), Safe Use of Anticoagulants (DC)
== END 2017-06-29 13:41 | disposition home or self-care (01) | DRG 394 ==
LOC: EC 01:59 → 6SEL 03:48
PROVIDERS: ADMIT Hospitalist; ATTEND Hospitalist
DX: K64.4 Residual hemorrhoidal skin tags (principal); D62 Acute posthemorrhagic anemia; I95.9 Hypotension, unspecified; I42.9 Cardiomyopathy, unspecified; I48.4 Atypical atrial flutter; I48.91 Unspecified atrial fibrillation; F41.9 Anxiety disorder, unspecified; M79.672 Pain in left foot; M79.671 Pain in right foot; I49.3 Ventricular premature depolarization; I44.30 Unspecified atrioventricular block; I25.10 Atherosclerotic heart disease of native coronary artery without angina pectoris; E78.5 Hyperlipidemia, unspecified; I10 Essential (primary) hypertension; Z88.0 Allergy status to penicillin; Z79.82 Long term (current) use of aspirin; Z79.01 Long term (current) use of anticoagulants; Z79.899 Other long term (current) drug therapy; Z82.3 Family history of stroke; Z95.5 Presence of coronary angioplasty implant and graft; Z80.49 Family history of malignant neoplasm of other genital organs; Z87.891 Personal history of nicotine dependence; Z86.010 Personal history of colon polyps; Z86.79 Personal history of other diseases of the circulatory system
CPT/HCPCS: 36415; 80048; 80053; 83605; 83735; 85025; 85610; 85730; 86850; 86900; 86901; 93005; 96365; 96366; 96375; 99291

== ENCOUNTER 2018-05-15 17:58 | Inpatient (IN) | payer BC ==
[2018-05-15] MEDS ORDERED: PANTOPRAZOLE 40 MG/10 ML VIAL IVP STA (20:40)
[2018-05-15] MEDS ORDERED: SODIUM CHLORIDE 0.9% 1,000 ML IV STA ×2 (20:40→21:38)
--- NOTE | 2018-05-15 20:45 | ED ---
General Adult HPI - General Chief complaint: GI Bleed Stated complaint: Rectal Bleeding Time Seen by Provider: 05/15/18 20:07 Source: patient, RN notes reviewed Mode of arrival: ambulatory Limitations: no limitations - History of Present Illness Initial comments: 52-year-old male with a past medical history of atrial fibrillation, hyperlipidemia, hypertension presents to the emergency department for a chief complaint of rectal bleeding 4 days. Patient states blood is bright red. Patient states it has worsened in the past 2 days and he has been wearing pads for this. Patient states he has a history of low platelets. Patient is currently on Eliquis for atrial fibrillation. Patient denies any abdominal pain. Patient denies any dark red blood besides for small clots. He states he does have a history of hemorrhoids. Patient had a colonoscopy 4 years ago that showed 1 polyp. Patient has no other complaints at this time including shortness of breath, chest pain, abdominal pain, nausea or vomiting, headache, or visual changes. - Related Data Home Medications Medication Instructions Recorded Confirmed ALPRAZolam 0.5 mg PO TID PRN 07/25/14 05/15/18 Cyanocobalamin [Vitamin B-12] 1,000 mcg PO DAILY 07/25/14 05/15/18 Multivitamin [Men's Multi-Vitamin] 1 tab PO DAILY 07/25/14 05/15/18 Aspirin 81 mg PO DAILY 10/24/14 05/15/18 Atorvastatin [Lipitor] 80 mg PO DAILY 10/24/14 05/15/18 Apixaban [Eliquis] 5 mg PO BID 03/31/17 05/15/18 Ascorbic Acid [Vitamin C] 1,000 mg PO DAILY 06/28/17 05/15/18 Losartan [Cozaar] 50 mg PO HS 06/28/17 05/15/18 Previous Rx's Medication Instructions Recorded Nitroglycerin Sl Tabs [Nitrostat] 0.4 mg SUBLINGUAL Q5M PRN #25 tab 07/27/14 Flecainide [Tambocor] 100 mg PO Q12HR #60 tab 06/29/17 Metoprolol Succinate (ER) [Toprol 100 mg PO DAILY #30 tab.er.24h 06/29/17 XL] Allergies Allergy/AdvReac Type Severity Reaction Status Date / Time Penicillins Allergy Unknown Verified 05/15/18 21:12 Childhood Review of Systems ROS Statement: Those systems with pertinent positive or pertinent negative responses have been documented in the HPI. ROS Other: All systems not noted in ROS Statement are negative. Past Medical History Past Medical History: Atrial Fibrillation, Hyperlipidemia, Hypertension Additional Past Medical History / Comment(s): 07/26/14 Pt admitted [facility] following RCA stenting for chest pain. Other HX: TIAGO HEELS RECENT STERIOD INJECTIONS 2 weks ago due to heel pain from falling arches causing heel muscle stretch. History of Any Multi-Drug Resistant Organisms: None Reported Past Surgical History: Ablation, Heart Catheterization With Stent Additional Past Surgical History / Comment(s): 07/26/14 RCA stenting Past Anesthesia/Blood Transfusion Reactions: No Reported Reaction Date of Last Stent Placement:: 07/26/14 Past Psychological History: Anxiety Smoking Status: Former smoker Past Alcohol Use History: Daily Past Drug Use History: None Reported - Past Family History Father Family Medical History: CVA/TIA Additional Family Medical History / Comment(s): Father of brain stem CVA Mother Family Medical History: Cancer Additional Family Medical History / Comment(s): Mother is living. General Exam Limitations: no limitations General appearance: alert, in no apparent distress Head exam: Present: atraumatic, normocephalic, normal inspection Eye exam: Present: normal appearance, PERRL, EOMI. Absent: scleral icterus, conjunctival injection, periorbital swelling ENT exam: Present: normal exam, mucous membranes moist Neck exam: Present: normal inspection. Absent: tenderness, meningismus, lymphadenopathy Respiratory exam: Present: normal lung sounds bilaterally. Absent: respiratory distress, wheezes, rales, rhonchi, stridor Cardiovascular Exam: Present: regular rate, normal rhythm, normal heart sounds. Absent: systolic murmur, diastolic murmur, rubs, gallop, clicks GI/Abdominal exam: Present: soft, normal bowel sounds. Absent: distended, tenderness, guarding, rebound, rigid Rectal exam: Present: normal inspection, normal rectal tone. Absent: black stool, bloody stool, hemorrhoids, mass, tenderness Course Vital Signs 05/15/18 05/15/18 05/15/18 18:33 20:51 21:00 Temperature 98.5 F Pulse Rate 74 63 54 L Respiratory 18 18 16 Rate Blood Pressure 122/70 150/89 O2 Sat by Pulse 95 96 Oximetry 05/15/18 05/15/18 05/15/18 21:30 21:36 22:00 Temperature Pulse Rate 115 H 116 H 116 H Respiratory 18 18 18 Rate Blood Pressure 150/89 141/104 141/104 O2 Sat by Pulse 96 95 94 L Oximetry 05/15/18 05/15/18 05/15/18 22:30 23:00 23:08 Temperature Pulse Rate 115 H 118 H Respiratory 18 23 18 Rate Blood Pressure 136/94 136/94 149/104 O2 Sat by Pulse 94 L 95 95 Oximetry 05/15/18 05/16/18 05/16/18 23:30 00:00 01:00 Temperature Pulse Rate 120 H 113 H Respiratory 16 18 10 L Rate Blood Pressure 149/104 133/91 144/104 O2 Sat by Pulse 94 L 96 Oximetry 05/16/18 05/16/18 05/16/18 01:30 02:00 02:25 Temperature 97.8 F Pulse Rate 114 H 115 H 116 H Respiratory 16 18 18 Rate Blood Pressure 139/105 147/104 133/105 O2 Sat by Pulse 95 96 95 Oximetry 05/16/18 02:30 Temperature Pulse Rate 118 H Respiratory 12 Rate Blood Pressure 138/105 O2 Sat by Pulse 96 Oximetry EKG Findings - EKG Comments: EKG Findings:: EKG 2112: Sinus bradycardia with bigeminy, ventricular rate 59, QRS duration 94, QTc 459. EKG 2129: A flutter, ventricular rate 118, QRS ration 84, QTC 420 Medical Decision Making - Medical Decision Making 52-year-old male presents for chief complaint rectal bleeding 4 days. Blood as bright red. Patient states he is using pads because the bleeding has increased. He also admits is passing small clots. Denies dark blood. Hemoccult was negative. CBC shows a hemoglobin of 14.0. CMP unremarkable besides for a glucose of 70, patient was given a sandwich, chips, and juice. Patient was started on Protonix. Patient initially rate controlled with a sinus bradycardia of 59 bpm. However patient did become tachycardic around the 1 teens. Patient was given flecainide and Toprol-XL which he takes at home as well as a 2 L bolus. Heart rate stayed around the 110-119. Patient was not given Cardizem at this time as he was already given a beta erin. No chest discomfort. However patient will be admitted for management of rectal bleed as well as a flutter. - Lab Data Result diagrams: 05/15/18 20:40 05/15/18 20:40 Lab Results 05/15/18 05/15/18 05/15/18 Range/Units 20:40 20:40 20:40 WBC 4.7 (3.8-10.6) k/uL RBC 4.42 (4.30-5.90) m/uL Hgb 14.0 (13.0-17.5) gm/dL Hct 43.0 (39.0-53.0) % MCV 97.4 (80.0-100.0) fL MCH 31.6 (25.0-35.0) pg MCHC 32.4 (31.0-37.0) g/dL RDW 12.5 (11.5-15.5) % Plt Count 151 (150-450) k/uL Neutrophils % 50 % Lymphocytes % 31 % Monocytes % 12 % Eosinophils % 2 % Basophils % 1 % Neutrophils # 2.4 (1.3-7.7) k/uL Lymphocytes # 1.5 (1.0-4.8) k/uL Monocytes # 0.6 (0-1.0) k/uL Eosinophils # 0.1 (0-0.7) k/uL Basophils # 0.0 (0-0.2) k/uL PT (9.0-12.0) sec INR (<1.2) APTT (22.0-30.0) sec Sodium 141 (137-145) mmol/L Potassium 4.4 (3.5-5.1) mmol/L Chloride 107 (98-107) mmol/L Carbon Dioxide 25 (22-30) mmol/L Anion Gap 9 mmol/L BUN 14 (9-20) mg/dL Creatinine 0.72 (0.66-1.25) mg/dL Est GFR (CKD-EPI)AfAm >90 (>60 ml/min/1.73 sqM) Est GFR (CKD-EPI)NonAf >90 (>60 ml/min/1.73 sqM) Glucose 70 L (74-99) mg/dL Calcium 9.9 (8.4-10.2) mg/dL Total Bilirubin 1.0 (0.2-1.3) mg/dL AST 42 (17-59) U/L ALT 24 (21-72) U/L Alkaline Phosphatase 53 (38-126) U/L Total Creatine Kinase 64 (55-170) U/L CK-MB (CK-2) 0.4 (0.0-2.4) ng/mL CK-MB (CK-2) Rel Index 0.6 Total Protein 6.7 (6.3-8.2) g/dL Albumin 4.1 (3.5-5.0) g/dL Stool Occult Blood (Negative) Blood Type Blood Type Recheck Antibody Screen Spec Expiration Date 05/15/18 05/15/18 05/15/18 Range/Units 20:40 20:40 20:40 WBC (3.8-10.6) k/uL RBC (4.30-5.90) m/uL Hgb (13.0-17.5) gm/dL Hct (39.0-53.0) % MCV (80.0-100.0) fL MCH (25.0-35.0) pg MCHC (31.0-37.0) g/dL RDW (11.5-15.5) % Plt Count (150-450) k/uL Neutrophils % % Lymphocytes % % Monocytes % % Eosinophils % % Basophils % % Neutrophils # (1.3-7.7) k/uL Lymphocytes # (1.0-4.8) k/uL Monocytes # (0-1.0) k/uL Eosinophils # (0-0.7) k/uL Basophils # (0-0.2) k/uL PT 9.6 (9.0-12.0) sec INR 0.9 (<1.2) APTT 28.6 (22.0-30.0) sec Sodium (137-145) mmol/L Potassium (3.5-5.1) mmol/L Chloride (98-107) mmol/L Carbon Dioxide (22-30) mmol/L Anion Gap mmol/L BUN (9-20) mg/dL Creatinine (0.66-1.25) mg/dL Est GFR (CKD-EPI)AfAm (>60 ml/min/1.73 sqM) Est GFR (CKD-EPI)NonAf (>60 ml/min/1.73 sqM) Glucose (74-99) mg/dL Calcium (8.4-10.2) mg/dL Total Bilirubin (0.2-1.3) mg/dL AST (17-59) U/L ALT (21-72) U/L Alkaline Phosphatase (38-126) U/L Total Creatine Kinase (55-170) U/L CK-MB (CK-2) (0.0-2.4) ng/mL CK-MB (CK-2) Rel Index Total Protein (6.3-8.2) g/dL Albumin (3.5-5.0) g/dL Stool Occult Blood Negative (Negative) Blood Type A Positive Blood Type Recheck No Antibody Screen NEGATIVE Spec Expiration Date 05/18/20182339 Disposition Clinical Impression: Atrial flutter with rapid ventricular response, Hematochezia Disposition: ADMITTED IP TO THIS HOSP Condition: Good Is patient prescribed a controlled substance at d/c from ED?: No Time of Disposition: 04:06
[2018-05-15 21:13] LABS: Basophils % (A) 1 %; Eosinophils # (A) 0.1 k/uL (0-0.7); Eosinophils % (A) 2 %; Lymphocytes # (A) 1.5 k/uL (1.0-4.8); Lymphocytes % (A) 31 %; MCH 31.6 pg (25.0-35.0); MCHC 32.4 g/dL (31.0-37.0); MCV 97.4 fL (80.0-100.0); Mean Platelet Volume 8.8; Monocytes # (A) 0.6 k/uL (0-1.0); Monocytes % (A) 12 %; Neutrophils # (A) 2.4 k/uL (1.3-7.7); Neutrophils % (A) 50 %; Platelet Count 151 k/uL (150-450); RBC 4.42 m/uL (4.30-5.90); RDW 12.5 % (11.5-15.5); WBC 4.7 k/uL (3.8-10.6)
[2018-05-15 21:18] LABS: ALT 24 U/L (21-72); AST 42 U/L (17-59); Albumin 4.1 g/dL (3.5-5.0); Alkaline Phosphatase 53 U/L (38-126); Anion Gap 9 mmol/L; Blood Urea Nitrogen 14 mg/dL (9-20); Calcium 9.9 mg/dL (8.4-10.2); Carbon Dioxide 25 mmol/L (22-30); Chloride 107 mmol/L (98-107); Glucose 70 mg/dL (74-99); Potassium 4.4 mmol/L (3.5-5.1); Sodium 141 mmol/L (137-145); Total Protein 6.7 g/dL (6.3-8.2)
[2018-05-15 21:33] LABS: Creatine Kinase MB 0.4 ng/mL (0.0-2.4)
[2018-05-15 21:38] LABS: INR 0.9 (<1.2); Partial Thromboplastin Time 28.6 sec (22.0-30.0); Prothrombin Time 9.6 sec (9.0-12.0)
[2018-05-15] MEDS ORDERED: FLECAINIDE 50 MG TAB PO STA (22:24)
[2018-05-15] MEDS ORDERED: METOPROLOL SUCCINATE (ER) 100 MG TAB.ER.24H PO STA (22:24)
[2018-05-15] MEDS ORDERED: NALOXONE 0.4 MG/ML 1 ML VIAL IV PRN (23:59)
[2018-05-16] MEDS: SODIUM CHLORIDE 0.9% 1,000 ML IV SCH ×3 (02:26→20:06)
[2018-05-16] MEDS: PANTOPRAZOLE 40 MG/10 ML VIAL IVP SCH ×2 (09:03→20:06)
[2018-05-16] MEDS ORDERED: ALPRAZolam 0.5 MG TAB PO PRN (11:51)
[2018-05-16] MEDS ORDERED: NITROGLYCERIN SL TABS 0.4 MG TAB SUBLINGUAL PRN (11:51)
[2018-05-16] MEDS: METOPROLOL SUCCINATE (ER) 100 MG TAB.ER.24H PO SCH (12:22)
[2018-05-16] MEDS: FLECAINIDE 50 MG TAB PO SCH ×2 (12:23→20:06)
[2018-05-16 13:26] VITALS: BMI 23.6
[2018-05-16 15:11] LABS: HCT 42.6 % (39.0-53.0); HGB 14.1 gm/dL (13.0-17.5); MCH 32.6 pg (25.0-35.0); MCV 98.8 fL (80.0-100.0); Mean Platelet Volume 8.7; Platelet Count 124 k/uL (150-450); RBC 4.31 m/uL (4.30-5.90); RDW 12.3 % (11.5-15.5); WBC 5.9 k/uL (3.8-10.6)
[2018-05-16 15:22] LABS: ALT 28 U/L (21-72); AST 33 U/L (17-59); Albumin 3.8 g/dL (3.5-5.0); Alkaline Phosphatase 50 U/L (38-126); Anion Gap 6 mmol/L; Blood Urea Nitrogen 14 mg/dL (9-20); Calcium 8.8 mg/dL (8.4-10.2); Carbon Dioxide 29 mmol/L (22-30); Chloride 103 mmol/L (98-107); Glucose 116 mg/dL (74-99); Magnesium 1.5 mg/dL (1.6-2.3); Sodium 138 mmol/L (137-145); Total Bilirubin 1.1 mg/dL (0.2-1.3); Total Protein 6.3 g/dL (6.3-8.2)
[2018-05-16] MEDS ORDERED: Magnesium Replacement Protocol 1 EACH MISC MISCELLANE PRN (15:25)
--- NOTE | 2018-05-16 15:25 | CONS ---
CONSULTATION ATTENDING PHYSICIAN: Dr. Abdi HISTORY OF PRESENT ILLNESS: Mr. Torres is a 52-year-old male with known history of paroxysmal atrial flutter, history of hypertension, history of chronic tobacco use and daily alcohol intake, who presented with recurrent bright red blood per rectum. He had similar episode last year and was thought to be related to hemorrhoids. Because of the persistent symptoms, he came into the hospital and admitted. On presentation he was in atrial flutter and subsequently converted back to sinus mechanism, but he is back in atrial flutter at this time. He does not feel the arrhythmia and that has been going on. He apparently had a prior ablation but in spite of that he had recurrent arrhythmia. He has been maintained on flecainide. He denies any chest pain. He denies any change in his breathing. He has no peripheral edema. No PND. No orthopnea. No syncope. He is active physically without difficulty. His coronary risk factors are remarkable for the history of smoking. He has history of hyperlipidemia and hypertension. He is nondiabetic. MEDICATION: Include Toprol-XL 100 mg daily, Cozaar 50 mg daily and flecainide 100 mg twice a day, Lipitor 80 mg daily, Eliquis 5 mg twice a day, vitamin C and alprazolam in addition to aspirin 81 mg daily. REVIEW OF SYSTEMS: RESPIRATORY system: He has no recent wheezing. No cough. No history of documented obstructive lung disease. GI system: He has the bright red blood per rectum. No nausea, no vomiting. system: No dysuria or hematuria. Nervous system: No stroke or seizure. PHYSICAL EXAMINATION: He is a 52-year-old male, alert, oriented, in no apparent distress. Blood pressure running in the 130s to 140s systolic with a heart rate in the 120s. HEAD: Normocephalic. EYES: Sclerae anicteric. Neck: Good carotid upstroke. No bruit. No jugular venous distention. LUNGS: Clear to auscultation. HEART: Regular rate and rhythm S1, S2. No S3 with no rub. ABDOMEN: Soft, nontender. Positive bowel sounds. No organomegaly. EXTREMITIES: No edema. Intact distal pulses. LAB DATA: Revealed BUN and creatinine 14 and 0.72. Potassium 4.4, hemoglobin of 14, platelet count of 151,000. Initial EKG revealed atrial flutter with variable block. Subsequent EKG revealed a sinus mechanism with ventricular ectopic activity. His sinus rate was in the high 50s, low 60s. IMPRESSION: 1. Lower gastrointestinal bleeding, most likely hemorrhoidal bleeding. 2. Paroxysmal atrial flutter, chronic, anticoagulated in the past. Antiarrhythmic, patient has underwent ablation in the past. 3. History of hypertension. 4. History of hyperlipidemia. 5. Chronic tobacco use. 6. Chronic ETOH intake. RECOMMENDATION: At this time, we will hold his Eliquis, the aspirin. I have discussed with him the importance of smoking and alcohol use cessation. We will await the input of the Gastroenterology service. He will continue on the flecainide and beta erin. Once he is stable from the GI bleeding, once acceptable, he can resume his Eliquis and follow up with Dr. Cabrera on an outpatient basis. Thank you for this consult. We will follow with you. MMYEISON / IJN: [id number] /
[2018-05-16] MEDS: MAGNESIUM SULFATE-D5W PMX 1 GM in DEXTROSE/WATER 1 100ML.BAG IVPB SCH ×2 (16:03→17:28)
[2018-05-16] MEDS ORDERED: LOSARTAN 50 MG TAB PO SCH (21:00)
--- NOTE | 2018-05-16 21:58 | HP ---
HISTORY AND PHYSICAL DATE OF ADMISSION: 05/16/2018 DATE OF SERVICE: 05/16/2018 PRESENTING COMPLAINT: Rectal bleeding. HISTORY OF PRESENTING COMPLAINT: This is a very pleasant 53 -year-old patient of Dr. Abdi whose chronic stable medical conditions include coronary artery disease, hypertension, hyperlipidemia. The patient has known atrial flutter fibrillation for which she is on Eliquis. The patient presents with 3-4 days of rectal bleeding of different variable amounts. Becoming weak, tired, run down. Denies any abdominal pain. No nausea, vomiting. No fever. No chills. No loss of appetite. The patient otherwise rather active. No prior GI bleed. The patient is on Eliquis, which was held on presentation. The patient was found to be in atrial flutter in the ER and did go for short time into sinus rhythm. Cardiology was consulted. The patient is on flecainide for the same. REVIEW OF SYSTEMS: CONSTITUTIONAL: Weak and tired. HEENT: None. RESPIRATORY: None. CARDIOVASCULAR: As above. GASTROINTESTINAL: As above. GENITOURINARY none. MUSCULOSKELETAL none. DERMATOLOGICAL, HEMATOLOGIC, LYMPHATIC: None. PSYCHIATRY: None. NEUROLOGICAL: None. PAST MEDICAL HISTORY: Of atrial fibrillation, coronary artery disease with stent, hypertension, hyperlipidemia. PAST SURGICAL HISTORY: Cardiac ablation, cardiac cath with stent in 2014 to the RCA. Also had a colonoscopy 2014. PSYCH HISTORY: Anxiety. SOCIAL HISTORY: . The patient smoked for about 35 years, stopped in 2016, smoked 3 cigarettes a day. Used to drink about 3 whiskeys ad now down to 2 whiskey a day. FAMILY HISTORY: Father of a brain stem stroke. HOME MEDICATIONS: 1. Nitrostat 0.4 sublingual q.5 p.r.n. 2. Men's multivitamin 1 tablet p.o. daily. 3. Toprol-XL 100 mg p.o. daily. 4. Cozaar 50 mg q.h.s. 5. Flecainide 100 mg p.o. q.12h. 6. Vitamin B12 1000 mcg p.o. daily. 7. Lipitor 80 mg p.o. daily. 8. Aspirin 81 mg p.o. daily. 9. Vitamin C 1000 mg p.o. daily. 10.Eliquis 5 mg p.o. b.i.d. 11.Xanax 0.5 p.o. t.i.d. p.r.n. ALLERGIES: PENICILLIN. PHYSICAL EXAMINATION: VITAL SIGNS: Vital signs on presentation: Temperature 98.5. The heart rate did go up to 120s, respiration 18, blood pressure 148/104, pulse ox 95% on room air. GENERAL APPEARANCE: Average built, sitting up comfortable. EYES: Pupils equal. Conjunctivae normal. HEENT: External appearance of nose and ears normal. Oral cavity normal. NECK: JVD not raised. Mass not palpable. RESPIRATORY: Effort normal. LUNGS: Fair air entry. CARDIOVASCULAR: Heart sounds irregular. No edema. ABDOMEN: Soft, nontender. Liver and spleen not palpable. LYMPHATICS: No lymph nodes palpable in the neck or axilla. PSYCHIATRY: Alert and oriented x3. Mood and affect normal. NEUROLOGICAL: Pupils equal. Cranial nerves grossly intact. Power and sensation grossly intact. INVESTIGATIONS: White count 4.7, hemoglobin 14, potassium 4.4. BUN and creatinine is normal. AST, ALT is normal. Stool occult blood is negative. EKG tracing personally reviewed by me shows atrial flutter with variable ventricular rate. ASSESSMENT: 1. Acute gastrointestinal bleed for 5 days, recurrent in a patient who is on Eliquis. There has been no abdominal pain. This well could be a diverticular bleed. The patient did have a colonoscopy back in 2014 and patient was then shown to have internal hemorrhoids. 2. Persistent recurrent atrial flutter for which patient is chronically on Eliquis. 3. Coronary artery disease, prior history of stent. 4. Essential hypertension. 5. Hyperlipidemia. PLAN: Patient's Eliquis has been held. H and H will be closely followed. Other medications are continued. Patient is put on PPI, IV fluids and a clear liquid diet. Cardiology and Gastroenterology was consulted. Care was discussed with the patient and at the bedside. The patient advised also holding off on alcohol. Copy to Dr. Abdi. ACE / LESLIE: [id number] /
--- NOTE | 2018-05-16 22:45 | P.CONS ---
History of Present Illness - Reason for Consult Consult date: 05/16/18 Blood per rectum Requesting physician: Shelton Moon - Chief Complaint Blood per rectum - History of Present Illness 52-year-old male with a medical history significant for hyperlipidemia, coronary artery disease, atrial fibrillation and hypertension who presented to the hospital with complaints of bright red blood per rectum. The patient reports a 4-5 day history of bright red blood per rectum. He reports having 2- 3 bowel movements daily with blood noted in the toilet and with wiping. The patient felt that there was increasing blood and therefore presented to the hospital for further evaluation. Currently he is reporting that his last bowel movement was brown with no blood reported. He is on Melquist therapy for atrial fibrillation which has been held for the past day. He did report one prior episode of bright red blood per rectum in 2018 which occurred over 1 day and stopped on its own. He had a colonoscopy in 10/2014 during which a 1 cm descending colon polyp was removed with polypectomy and grade 2 internal hemorrhoids were seen. On presentation to the hospital the patient was found to have a hemoglobin of 14 which was repeated and found to be 14.1. His stool was found to be negative for occult blood. The patient had a platelet count of 124,000 and has a known history of thrombocytopenia. Review of Systems REVIEW OF SYSTEMS: CONSTITUTIONAL: Denies any fevers, chills, weight change or fatigue. CARDIOVASCULAR: Denies any chest pain, palpitations high or low blood pressures , atrial fibrillation RESPIRATORY: Denies any shortness of breath, hemoptysis or cough. GENITOURINARY: No dysuria or hematuria. MUSCULOSKELETAL: No weakness reported. SKIN: Denies any new rashes or lesions, jaundice or pallor. PSYCHIATRIC: Denies any depression or anxiety. NEUROLOGY: Denies headache, denies any new focal deficits. EARS/NOSE/THROAT: No recent hearing change, congestion, nasal discharge or sore throat. EYES: No pain in eyes, discharge or change in vision. GASTROINTESTINAL: As per HPI. Past Medical History Past Medical History: Atrial Fibrillation, Coronary Artery Disease (CAD), GI Bleed, Hyperlipidemia, Hypertension Additional Past Medical History / Comment(s): Hematochezia/lower GI bleed- thought possibly d/t hemorrhoids but pt/spouse state that was never confirmed, low platelets, past heel pain/fallen arches. History of Any Multi-Drug Resistant Organisms: None Reported Past Surgical History: Cardiac Ablation, Heart Catheterization With Stent Additional Past Surgical History / Comment(s): 07/26/14 RCA stenting, colonoscopy Past Anesthesia/Blood Transfusion Reactions: No Reported Reaction Date of Last Stent Placement:: 07/26/14 Smoking Status: Light tobacco smoker - Past Family History Father Family Medical History: CVA/TIA Additional Family Medical History / Comment(s): Father of brain stem CVA Mother Family Medical History: Cancer Additional Family Medical History / Comment(s): Mother is living. She had vaginal cancer with surgery. Medications and Allergies Home Medications Medication Instructions Recorded Confirmed Type ALPRAZolam 0.5 mg PO TID PRN 07/25/14 05/15/18 History Cyanocobalamin [Vitamin B-12] 1,000 mcg PO DAILY 07/25/14 05/15/18 History Multivitamin [Men's Multi-Vitamin] 1 tab PO DAILY 07/25/14 05/15/18 History Nitroglycerin Sl Tabs [Nitrostat] 0.4 mg SUBLINGUAL Q5M PRN #25 tab 07/27/1407/28 Rx Aspirin 81 mg PO DAILY 10/24/14 05/15/18 History Atorvastatin [Lipitor] 80 mg PO DAILY 10/24/14 05/15/18 History Apixaban [Eliquis] 5 mg PO BID 03/31/17 05/15/18 History Ascorbic Acid [Vitamin C] 1,000 mg PO DAILY 06/28/17 05/15/18 History Losartan [Cozaar] 50 mg PO HS 06/28/17 05/15/18 History Flecainide [Tambocor] 100 mg PO Q12HR #60 tab 06/29/17 05/15/18 Rx Metoprolol Succinate (ER) [Toprol 100 mg PO DAILY #30 tab.er.24h 06/29/17 Rx XL] Allergies Allergy/AdvReac Type Severity Reaction Status Date / Time Penicillins Allergy Unknown Verified 05/15/18 21:12 Childhood Physical Exam Vitals: Vital Signs Temp Pulse Pulse Resp BP BP Pulse Ox 05/16/18 20:01 97.1 F L 120 H 16 121/63 97 05/16/18 19:37 123 H 107/79 02/05/19 14:54 118 H 20 05/16/18 14:52 98.0 F 118 H 18 143/109 96 05/16/18 13:30 117 H 8 L 145/109 95 05/16/18 12:30 128 H 18 148/113 95 05/16/18 12:00 126 H 19 137/104 95 05/16/18 11:20 97.9 F 128 H 18 137/104 96 05/16/18 08:00 121 H 20 147/111 98 05/16/18 07:30 123 H 16 153/117 98 05/16/18 07:00 121 H 16 147/118 99 05/16/18 06:00 118 H 15 149/116 98 05/16/18 05:30 118 H 16 148/113 98 05/16/18 05:00 120 H 15 150/113 97 05/16/18 04:30 117 H 16 147/111 97 05/16/18 04:00 116 H 16 150/112 98 05/16/18 03:30 115 H 16 142/100 97 05/16/18 03:00 116 H 15 144/110 96 05/16/18 02:30 118 H 12 138/105 96 05/16/18 02:25 97.8 F 116 H 18 133/105 95 05/16/18 02:00 115 H 18 147/104 96 05/16/18 01:30 114 H 16 139/105 95 05/16/18 01:00 113 H 10 L 144/104 96 05/16/18 00:00 18 133/91 05/15/18 23:30 120 H 16 149/104 94 L 05/15/18 23:08 118 H 18 149/104 95 05/15/18 23:00 23 136/94 95 Intake and Output 05/16/18 05/16/18 05/16/18 06:59 14:59 22:59 Output Total 300 Balance -300 Output: Urine 300 Other: Voiding Method Toilet Toilet # Voids 1 # Bowel Movements 4 3 On physical examination, patient appears comfortable in no apparent distress. HEAD: Normocephalic, atraumatic. EYES: No scleral icterus. No conjunctival injection. MOUTH: No lesions, tongue midline. NECK: Trachea midline, no gross abnormalities. CHEST: Clear to auscultation with no wheezing or rhonchi appreciated. HEART: Irregularly irregular. ABDOMEN: Soft, obese. Bowel sounds are positive. No organomegaly. No guarding or rigidity. EXTREMITIES: No pedal edema. SKIN: No rashes, no jaundice. NEUROLOGIC: Alert and oriented x3. No focal deficits. Results CBC & Chem 7: 05/16/18 14:51 05/16/18 14:51 Labs: Abnormal Lab Results - Last 24 Hours (Table) 05/16/18 05/16/18 Range/Units 14:51 14:51 Plt Count 124 L (150-450) k/uL Glucose 116 H (74-99) mg/dL Magnesium 1.5 L (1.6-2.3) mg/dL Assessment and Plan (1) Hematochezia Narrative/Plan: Patient presenting with complaints of bright red blood per rectum in the setting of anticoagulation for atrial fibrillation and known thrombocytopenia. The patient had repeat hemoglobin found to be normal at 14 and 14.1. Stool tested positive for occult blood. The patient did have a colonoscopy in 2014 in which grade 2 internal hemorrhoids were noted. Likely hemorrhoidal in nature , with differential also including bleeding AVM, diverticulosis, bleeding follow -up, or other etiology. Current Visit: Yes Status: Acute Code(s): K92.1 - MELENA SNOMED Code(s): 446716163 Plan: Supportive care Monitor hemoglobin and transfuse as needed Okay for diet Anusol topical therapy over Monitor for signs and symptoms of GI bleeding, and stool output No plan for endoscopic evaluation at this time, if patient has a change in clinical status or fall in his hemoglobin will consider further evaluation, otherwise would recommend discharge for follow-up appointment scheduling of outpatient colonoscopy Thank you for allowing us to participate in the care of this patient, we will continue to follow
[2018-05-17 06:35] LABS: Basophils % (A) 0 %; Eosinophils # (A) 0.1 k/uL (0-0.7); Eosinophils % (A) 1 %; HCT 43.3 % (39.0-53.0); HGB 14.2 gm/dL (13.0-17.5); Lymphocytes # (A) 1.3 k/uL (1.0-4.8); Lymphocytes % (A) 20 %; MCH 32.4 pg (25.0-35.0); MCHC 32.8 g/dL (31.0-37.0); MCV 98.8 fL (80.0-100.0); Monocytes # (A) 0.7 k/uL (0-1.0); Monocytes % (A) 10 %; Neutrophils # (A) 4.4 k/uL (1.3-7.7); Neutrophils % (A) 66 %; Platelet Count 148 k/uL (150-450); RBC 4.38 m/uL (4.30-5.90); RDW 12.2 % (11.5-15.5); WBC 6.6 k/uL (3.8-10.6)
[2018-05-17 06:46] LABS: Anion Gap 4 mmol/L; Blood Urea Nitrogen 10 mg/dL (9-20); Calcium 8.7 mg/dL (8.4-10.2); Carbon Dioxide 28 mmol/L (22-30); Chloride 107 mmol/L (98-107); Glucose 94 mg/dL (74-99); Magnesium 2.1 mg/dL (1.6-2.3); Potassium 4.9 mmol/L (3.5-5.1); Sodium 139 mmol/L (137-145)
[2018-05-17] MEDS: SODIUM CHLORIDE 0.9% 1,000 ML IV SCH (06:59)
[2018-05-17] MEDS ORDERED: CYANOCOBALAMIN 500 MCG TAB PO SCH (09:00)
[2018-05-17] MEDS ORDERED: ASCORBIC ACID 500 MG TAB PO SCH (09:00)
[2018-05-17] MEDS ORDERED: ATORVASTATIN 80 MG TAB PO SCH (09:00)
[2018-05-17] MEDS ORDERED: HYDROCORTISONE SUPPOSITORY 25 MG SUPP RECTAL SCH (09:00)
[2018-05-17 09:02] VITALS: RESP 18
[2018-05-17] MEDS: FLECAINIDE 50 MG TAB PO SCH (09:02)
[2018-05-17] MEDS: PANTOPRAZOLE 40 MG/10 ML VIAL IVP SCH (09:03)
[2018-05-17] MEDS: METOPROLOL SUCCINATE (ER) 100 MG TAB.ER.24H PO SCH (09:03)
[2018-05-17] MEDS ORDERED: MULTIVITAMINS, THERA 1 EACH TAB PO SCH (12:00)
[2018-05-17] MEDS ORDERED: METOPROLOL TARTRATE 50 MG TAB PO STA (14:05)
--- NOTE | 2018-05-17 14:56 | P.PN ---
Subjective Progress Note Date: 05/17/18 This is a 52-year-old gentleman with history of paroxysmal atrial flutter, hypertension, history of nicotine dependence and daily alcohol use. He presented to the hospital with symptoms of bright red blood per rectum. Patient had similar episode last year which was felt to be related to hemorrhoids. Patient has had a couple episodes of atrial flutter, and subsequently converted back to normal sinus rhythm. Patient has had history of prior ablation in the past. He was seen and examined this morning,, hemoglobin remaining stable at 14.2, sodium 139, potassium 4.9, BUN 10, creatinine 0.6. His in his Eliquis today. We will also give the patient a one-time dose of extra Lopressor today. He may be able to discharge home from our perspective to follow-up with Dr. De Leon in the office post discharge. Objective - Vital Signs Vital signs: Vital Signs Temp 98.1 F 05/17/18 08:00 Pulse 130 H 05/17/18 08:00 Resp 18 05/17/18 08:00 BP 114/87 05/17/18 08:00 Pulse Ox 96 05/17/18 08:00 Intake & Output 05/16/18 05/17/18 05/17/18 18:59 06:59 18:59 Intake Total 800 600 Output Total 300 Balance -300 800 600 Weight 72 kg Intake: Intake, IV Titration 800 Amount Sodium Chloride 0.9% 1, 800 000 ml @ 100 mls/hr IV . Q10H [facility] Rx#:[id number] Oral 600 Output: Urine 300 Other: Voiding Method Toilet Toilet Toilet # Voids 1 2 # Bowel Movements 4 3 - Exam PHYSICAL EXAMINATION: GENERAL: 52-year-old gentleman in no acute distress at the time of my examination HEENT: Head is atraumatic, normocephalic. Pupils equal, round. Sclera anicteric. Conjunctiva are clear. Mucous membranes of the mouth are moist. Neck is supple. There is no elevated jugular venous pressure. No carotid bruit is heard. HEART EXAMINATION: Heart S1, S2 normal. No murmur or gallop heard. CHEST EXAMINATION: Lungs are clear to auscultation and precussion. No chest wall tenderness is noted on palpation or with deep breathing. ABDOMEN: Soft, nontender. Bowel sounds are heard. No organomegaly noted. EXTREMITIES: 2+ peripheral pulses with no evidence of peripheral edema and no calf tenderness noted. NEUROLOGIC patient is awake, alert and oriented X3. . - Labs CBC & Chem 7: 05/17/18 05:59 05/17/18 05:59 Labs: Abnormal Lab Results - Last 24 Hours (Table) 05/16/18 05/16/18 05/17/18 Range/Units 14:51 14:51 05:59 Plt Count 124 L 148 L (150-450) k/uL Glucose 116 H (74-99) mg/dL Magnesium 1.5 L (1.6-2.3) mg/dL Assessment and Plan Plan: Assessment and plan #1 lower GI bleeding, most likely hemorrhoidal, hemoglobin remaining stable. #2 paroxysmal atrial flutter with prior ablation #3 hypertension 4 hyperlipidemia #5 nicotine dependence #6 chronic EtOH use Plan We will resume the patient's home Eliquis dose. Given additional dose of Lopressor today. From our perspective he may be able to be discharged home today, follow-up appointment with Dr. Cabrera in the office post discharge. DNP note has been reviewed, I agree with a documented findings and plan of care. Patient was seen and examined.
--- NOTE | 2018-05-17 15:58 | P.PN ---
Subjective Progress Note Date: 05/17/18 Principal diagnosis: rectal bleeding Hemoglobin 14.2. No rectal bleeding. Patient is requesting discharge. Denies abdominal pain. Objective - Vital Signs Vital signs: Vital Signs Temp 98.1 F 05/17/18 08:00 Pulse 130 H 05/17/18 08:00 Resp 18 05/17/18 08:00 BP 114/87 05/17/18 08:00 Pulse Ox 96 05/17/18 08:00 Intake & Output 05/16/18 05/17/18 05/17/18 18:59 06:59 18:59 Intake Total 800 600 Output Total 300 Balance -300 800 600 Weight 72 kg Intake: Intake, IV Titration 800 Amount Sodium Chloride 0.9% 1, 800 000 ml @ 100 mls/hr IV . Q10H [facility] Rx#:[id number] Oral 600 Output: Urine 300 Other: Voiding Method Toilet Toilet Toilet # Voids 1 2 # Bowel Movements 4 3 - Exam General appearance: The patient is alert, oriented, in no acute distress. HET: Head is normocephalic and atraumatic. Pupils are equal and reactive. Oropharynx is clear without lesions. Neck: Supple without lymphadenopathy. Trachea midline. Heart: S1 S2. Regular rate and rhythm. Lungs: No crackles or wheezes are heard. Abdomen: Soft, nontender, nondistended with bowel sounds. No peritoneal signs. No palpable organomegaly or masses. Extremities: Normal skin color and turgor. No cyanosis, rash, ulceration, clubbing, or edema. Radial and pedal pulses are 2/4 bilaterally. Neurological: No focal deficits. Strength and sensation are grossly intact. - Labs CBC & Chem 7: 05/17/18 05:59 05/17/18 05:59 Labs: Abnormal Lab Results - Last 24 Hours (Table) 05/17/18 Range/Units 05:59 Plt Count 148 L (150-450) k/uL Assessment and Plan (1) Hemorrhoids Current Visit: Yes Status: Acute Code(s): K64.9 - UNSPECIFIED HEMORRHOIDS SNOMED Code(s): 98102331 (2) Hematochezia Current Visit: Yes Status: Acute Code(s): K92.1 - MELENA SNOMED Code(s): 621693060 Plan: 1. Hemoglobin stable. No active bleeding. Family declines inpatient surgical evaluation for hemorrhoids. Agreeable for discharge. Follow up in GI office 10 -14 days for reevaluation discussion of outpatient colonoscopy. Anusol HC daily at bedtime. Assessment and plan a care discussed with Dr. Fernandez
[2018-05-17 17:41] VITALS: TEMP 97.9
[2018-05-17 17:45] VITALS: BP 133/98; PULSE 121
[2018-05-17] MEDS ORDERED: APIXABAN 5 MG TAB PO SCH (21:00)
--- NOTE | 2018-05-18 08:17 | DS ---
DISCHARGE SUMMARY DATE OF ADMISSION: 05/16/2018 DATE OF DISCHARGE: 05/17/2018 FINAL DIAGNOSES: 1. Acute lower GI bleed, felt to be bleeding from internal hemorrhoids per GI. 2. Persistent recurrent atrial flutter for which patient is chronically on Eliquis. 3. Coronary artery with prior history of stent. 4. Essential hypertension. 5. Hyperlipidemia. HOSPITAL COURSE: This patient presented with lower flank bleeding for 3-4 days. No abdominal pain. Patient did have a colonoscopy [place] [address] Jeana Ahuja, felt to be normal, hemorrhoids. Patient seen by Dr. Fernandez, felt this was hemorrhoidal bleeding. Wants the patient to have an outpatient colonoscopy. Patient did not have any real drop in blood pressure. Hemoglobin was stable at 14.2. Patient was seen by Cardiology. Doing well on the day of discharge, care was discussed with Dr. Fernandez earlier today and then with the patient and . Questions were answered. On examination, temperature 97.9, blood pressure 120/90. Patient is very keen to go home. Patient will follow up with Dr. Cabrera. DISCHARGE MEDICATIONS: 1. Xanax 0.5 p.o. t.i.d. p.r.n. 2. Vitamin B12 one thousand mcg p.o. daily. 3. Multivitamin 1 tablet p.o. daily. 4. Nitrostat 0.4 sublingual q.5 p.r.n. 5. Aspirin 81 mg daily. 6. Lipitor 80 mg p.o. daily. 7. Eliquis 5 mg b.i.d. 8. Vitamin C 1000 mg p.o. daily. 9. Cozaar 50 mg q.h.s. 10.Flecainide 100 mg p.o. q.12. 11.Toprol-XL 100 mg a day. 12.Anusol HC rectal daily. FOLLOWUP: Follow up with Dr. Cabrera in 1 week; follow up with Dr. Abdi in 2 days; follow up with Dr. Fernandez in 10 days. Discussion and discharge planning more than 35 minutes. On examination lungs are clear. Heart sounds irregular. MMODL / IJN: [id number] /
== END 2018-05-17 17:48 | disposition home or self-care (01) | DRG 394 ==
LOC: EC 17:58 → 3SCARD 05-16 01:49
PROVIDERS: ADMIT Hospitalist; ATTEND Hospitalist
DX: K64.1 Second degree hemorrhoids (principal); I48.92 Unspecified atrial flutter; E78.5 Hyperlipidemia, unspecified; F17.210 Nicotine dependence, cigarettes, uncomplicated; Z86.010 Personal history of colon polyps; D69.6 Thrombocytopenia, unspecified; I10 Essential (primary) hypertension; I25.10 Atherosclerotic heart disease of native coronary artery without angina pectoris; I48.91 Unspecified atrial fibrillation; Z79.01 Long term (current) use of anticoagulants; Z79.82 Long term (current) use of aspirin; Z79.899 Other long term (current) drug therapy; Z82.3 Family history of stroke; Z95.5 Presence of coronary angioplasty implant and graft; Z88.0 Allergy status to penicillin; Z80.49 Family history of malignant neoplasm of other genital organs
CPT/HCPCS: 36415; 80048; 80053; 82272; 82550; 82553; 83735; 85025; 85027; 85610; 85730; 86850; 86900; 86901; 93005; 96361; 96365; 96366; 96375; 96376; 99285

== ENCOUNTER 2021-11-19 10:16 | Day surgery (SDC) | payer BC ==
[2021-11-17 17:08] VITALS: BMI 22.8
[2021-11-19] MEDS ORDERED: SODIUM CHLORIDE 0.9% 1,000 ML IV ONE (11:11)
[2021-11-19] MEDS ORDERED: MIDAZOLAM 2 MG/2 ML VIAL IVP ONE (11:42)
[2021-11-19 11:55] LABS: Basophils % (A) 1 %; Eosinophils # (A) 0.1 k/uL (0-0.7); Eosinophils % (A) 1 %; HCT 43.3 % (39.0-53.0); HGB 14.2 gm/dL (13.0-17.5); Lymphocytes % (A) 40 %; MCH 33.4 pg (25.0-35.0); MCHC 32.7 g/dL (31.0-37.0); MCV 102.1 fL (80.0-100.0); Macrocytosis Slight; Mean Platelet Volume 9.5; Monocytes # (A) 0.4 k/uL (0-1.0); Monocytes % (A) 8 %; Neutrophils # (A) 2.2 k/uL (1.3-7.7); Neutrophils % (A) 46 %; Platelet Count 145 k/uL (150-450); RBC 4.24 m/uL (4.30-5.90); RDW 12.6 % (11.5-15.5); WBC 4.9 k/uL (3.8-10.6)
[2021-11-19] MEDS ORDERED: ePHEDrine 50 MG/ML 1 ML VIAL ONE (12:08)
[2021-11-19] MEDS ORDERED: PHENYLEPHRINE-0.9% NACL SYG 1,000 MCG/10 ML SYRINGE ONE (12:08)
[2021-11-19] MEDS ORDERED: MIDAZOLAM 2 MG/2 ML VIAL ONE (12:08)
[2021-11-19] MEDS ORDERED: NEOSTIGMINE 1 MG/ML 10 ML VIAL ONE (12:08)
[2021-11-19] MEDS ORDERED: PROPOFOL 10 MG/ML 20 ML VIAL IV ONE (12:08)
[2021-11-19] MEDS ORDERED: ISOPROTERENOL 250 MCG/1.25 ML SYR IV ONE (12:08)
[2021-11-19] MEDS ORDERED: ROCURONIUM 10 MG/ML (5 ML VIAL) IV ONE (12:08)
[2021-11-19] MEDS ORDERED: GLYCOPYRROLATE 0.2 MG/ML 2 ML VIAL ONE (12:08)
[2021-11-19] MEDS ORDERED: SUCCINYLCHOLINE CHLORIDE 200 MG/10 ML VIAL IV ONE (12:08)
[2021-11-19] MEDS ORDERED: fentaNYL (PF) 50 MCG/ML 2 ML AMP ONE (12:08)
[2021-11-19] MEDS ORDERED: LIDOCAINE 2% INJ 20 MG/ML (2 ML VIAL) ONE (12:08)
[2021-11-19] MEDS ORDERED: HEPARIN SODIUM (1,000 UNIT/ML) 1,000 UNIT in SODIUM CHLORIDE 0.9% 1,000 ML IRRIGATION ONE (12:29)
[2021-11-19] MEDS ORDERED: LACTATED RINGERS 1,000 ML IV ONE (14:00)
[2021-11-19] MEDS ORDERED: ALPRAZolam 0.5 MG TAB PO PRN (14:38)
[2021-11-19] MEDS ORDERED: ACETAMINOPHEN TAB 325 MG TAB PO PRN (14:39)
--- NOTE | 2021-11-19 14:42 | P.HPCAR ---
History of Present Illness This is Dr. Cabrera dictating an H/P on this patient The patient was interviewed and examined IMPRESSION / ASSESSMENT: Typical Atrial flutter with RVR at 150 beats a minute History of atrial fibrillation, persistent, status post cryoablation Hypertension History of PVCs History of CAD on aspirin PLAN: Proceed with atrial flutter ablation/EP study Continue ELIQUIS HPI Patient has had recurrent episodes of typical atrial flutter with RVR He is a history of atrial fibrillation status post cryoablation Today he has no symptoms no chest discomfort dizziness lightheadedness or palpitations Orthopnea PND no lower extremity edema ROS: No fever chills or rigors, no cough, phlegm or expectoration, no nausea, vomiting or diarrhea, no hematuria, dysuria, no musculoskeletal complaints, no strokes or seizures, no skin lesions. EXAMINATION: Afebrile 97.9F pulse rate in the 70s, blood pressure 116/75 mmHg Breath sounds are clear no rhonchi no crackles Heart sounds S1 and S2 are normal no murmurs Extremity is warm edema REVIEW OF LABS, ECG & MEDICAL DATA normal white count Hemoglobin 14.2, normal Platelet count 145,000 Physical Exam Vitals: Vital Signs Temp Pulse Resp BP Pulse Ox 11/19/21 11:43 97.9 F 73 16 116/75 97 Intake and Output 11/18/21 11/19/21 11/19/21 22:59 06:59 14:59 Intake Total 1100 Balance 1100 Intake: IV 1100 Other: Weight 71.9 kg Past Medical History Past Medical History: Atrial Fibrillation, Coronary Artery Disease (CAD), GI Bleed, Hyperlipidemia, Hypertension, Musculoskeletal Disorder Additional Past Medical History / Comment(s): past hx. Hematochezia/lower GI bleed-thought possibly d/t hemorrhoids but spouse states that was never confirmed, low platelets, past heel pain/fallen arches. see Dr Cabrera H & P History of Any Multi-Drug Resistant Organisms: None Reported Past Surgical History: Cardiac Ablation, Heart Catheterization With Stent Additional Past Surgical History / Comment(s): 07/26/14 RCA stenting, colonoscopy Past Anesthesia/Blood Transfusion Reactions: No Reported Reaction Date of Last Stent Placement:: 07/26/14 Smoking Status: Current every day smoker - Past Family History Father Family Medical History: CVA/TIA Additional Family Medical History / Comment(s): Father of brain stem CVA Mother Family Medical History: Cancer Additional Family Medical History / Comment(s): Mother is living. She had vaginal cancer with surgery. Physical Examination Vital Signs Temp Pulse Resp BP Pulse Ox 11/19/21 11:43 97.9 F 73 16 116/75 97 Intake and Output 11/18/21 11/19/21 11/19/21 22:59 06:59 14:59 Intake Total 1100 Balance 1100 Intake: IV 1100 Other: Weight 71.9 kg Results 11/19/21 11:13 CBC 11/19/21 Range/Units 11:13 WBC 4.9 (3.8-10.6) k/uL RBC 4.24 L (4.30-5.90) m/uL Hgb 14.2 (13.0-17.5) gm/dL Hct 43.3 (39.0-53.0) % Plt Count 145 L (150-450) k/uL Current Medications Generic Name Dose Route Start Last Admin Trade Name Freq PRN Reason Stop Dose Admin Acetaminophen 650 mg 11/19/21 14:39 Acetaminophen Tab 325 Mg Tab PO 12/19/21 14:40 Q6HR PRN Mild Pain Alprazolam 0.5 mg 11/19/21 14:38 Alprazolam 0.5 Mg Tab PO 12/19/21 14:39 TID PRN Anxiety Apixaban 5 mg 11/19/21 21:00 Apixaban 5 Mg Tab PO 12/19/21 21:01 BID [facility] Protocol Atorvastatin Calcium 80 mg 11/20/21 09:00 Atorvastatin 80 Mg Tab PO 12/20/21 09:01 DAILY [facility] Sodium Chloride 1,000 mls @ 20 mls/hr 11/19/21 05:46 Saline 0.9% IV 12/19/21 05:47 .Q24H [facility] Acetaminophen 1,000 mg/ IV 100 mls @ 400 mls/hr 11/19/21 14:39 Solution IVPB 11/19/21 14:53 ONCE ONE Losartan Potassium 25 mg 11/19/21 21:00 Losartan 50 Mg Tab PO 12/19/21 21:01 HS [facility] Metoprolol Succinate 100 mg 11/20/21 09:00 Metoprolol Succinate (Er) 100 Mg Tab.Er.24h PO 12/20/21 09:01 DAILY [facility] Sodium Chloride 12 ml 11/19/21 14:39 Sodium Chloride 0.9% Flush 10 Ml Syringe IV 12/19/21 14:40 Q12HR PRN Line Flush Intake and Output 11/18/21 11/19/21 11/19/21 22:59 06:59 14:59 Intake Total 1100 Balance 1100 Intake: IV 1100 Other: Weight 71.9 kg Patient Weight 11/20/21 06:59 Weight 71.9 kg 11/19/21 11:13
--- NOTE | 2021-11-19 14:48 | P.EPPROC ---
- EP Procedure Note Electrophysiology Procedure Note: Diagnosis Typical atrial flutter Procedure Diagnostic EP study and then a few frequency ablation for typical atrial flutter Details Patient was brought to the EP lab in a fasting state. Written informed consent was obtained prior to the procedure. Admitted for is a prepped and draped as a protocol General anesthesia provided. Venous sheaths were placed in the right left femoral veins and diagnostic mapping and ablation cath was placed in the high right atrium, His bundle area right ventricle AV node area George sinus and the cava tricuspid isthmus Intracardiac echo was performed LV and RV size and function are normal Isthmus was mapped No left atrial appendage thrombus noted No pericardial effusion noted 3-D electrical mapping was performed RF ablation was performed in the cava tricuspid isthmus This was then interrogated with pacing maneuvers Impression block was documented with differential pacing A complete anatomic line of block was made with RF energy Following that diagnoses EP study is performed Patient was experiencing left bundle PVCs through the procedure AV node Wenckebach block 32 ms VA Wenckebach block for 90 ms atrial pacing was performed from the high right atrium from the coronary sinus Parahisian pacing was performed and sherwin response is noted AH interval 50 ms and HV interval 39 ms Sinus cycle length 1046 ms, UT interval 130 ms, QRS 101 ms and QT interval 425 ms Isuprel was used wide open at 2 mics No arrhythmias induced After the patient was extubated he became quite tachycardic First and then to sinus tachycardia and then into atrial fibrillation./A. tach with RVR Electrical cardioversion was performed sinus rhythm
[2021-11-19] MEDS ORDERED: DEXTROSE 5% IN WATER 100 ML with AMIODARONE 150 MG IV ONE (14:50)
[2021-11-19] MEDS: SODIUM CHLORIDE 0.9% 1,000 ML IV SCH (15:04)
[2021-11-19] MEDS ORDERED: ACETAMINOPHEN IV (For NPO) 1,000 MG in EMPTY BAG 1 BAG IVPB ONE (16:30)
[2021-11-19] MEDS ORDERED: METOPROLOL TARTRATE 50 MG TAB PO STA (20:03)
[2021-11-19] MEDS ORDERED: AMIODARONE 360 MG in DEXTROSE 5% IN WATER 200 ML IV ONE ×2 (20:04)
[2021-11-19] MEDS ORDERED: DILTIAZEM 125 MG in SODIUM CHLORIDE 0.9% 100 ML IV SCH (20:30)
[2021-11-19] MEDS: APIXABAN 5 MG TAB PO SCH (20:39)
[2021-11-19] MEDS ORDERED: LOSARTAN 25 MG TAB PO SCH (21:00)
[2021-11-20] MEDS ORDERED: DRONEDARONE 400 MG TAB PO STA (04:23)
[2021-11-20] MEDS: SODIUM CHLORIDE 0.9% 1,000 ML IV SCH (05:58)
[2021-11-20 08:07] VITALS: BP 165/122; PULSE 80; RESP 18; TEMP 98.5
[2021-11-20] MEDS: APIXABAN 5 MG TAB PO SCH (08:16)
[2021-11-20] MEDS ORDERED: ATORVASTATIN 80 MG TAB PO SCH (09:00)
[2021-11-20] MEDS ORDERED: METOPROLOL SUCCINATE (ER) 100 MG TAB.ER.24H PO SCH (09:00)
== END 2021-11-20 10:00 | disposition home or self-care (01) ==
LOC: CATHEP 10:16 → 6NMEDSUR 14:18 → CATHEP 11-20 10:00
PROVIDERS: ATTEND Internal Medicine Clinical Cardiac Electrophysiology
DX: I48.92 Unspecified atrial flutter (principal); I48.19 Other persistent atrial fibrillation; I10 Essential (primary) hypertension
CPT/HCPCS: 92960; 93623; 93662; 93653; 85025; 87635; C1894; C1769 ×2; C1760; C1766; C1730; C1759; C1732; J2250; J0330; J2710; J0282; J3010; J1644; J2370; J2704; J2001

== ENCOUNTER 2024-08-27 09:36 | Emergency (ER) | payer BC ==
[2024-08-27 09:52] VITALS: RESP 18; TEMP 97.9
--- NOTE | 2024-08-27 10:45 | ED ---
General Adult HPI - General Chief complaint: Back Pain/Injury Stated complaint: back pain Time Seen by Provider: 08/27/24 10:22 Source: patient, family, RN notes reviewed Mode of arrival: ambulatory Limitations: no limitations - History of Present Illness Initial comments: 59-year-old male presents to the emergency department for evaluation of low back pain. Patient states that this been going on for a little over a week. He notes that he went to urgent care 1 week ago and was prescribed a steroid muscle relaxers. He was improving, but states that yesterday the symptoms seem to worsen again. He is having difficulty with ambulation. He reports that the pain radiates up his back into his left thigh. He denies any loss of bowel or bladder function. Denies any saddle anesthesia. Denies any fever, chills. - Related Data Home Medications Medication Instructions Recorded Confirmed ALPRAZolam 0.5 mg PO TID PRN 07/25/14 11/17/21 Cyanocobalamin [Vitamin B-12] 1,000 mcg PO DAILY 07/25/14 11/19/21 Multivitamin [Men's Multi-Vitamin] 1 tab PO DAILY 07/25/14 11/19/21 Atorvastatin [Lipitor] 80 mg PO DAILY 10/24/14 11/19/21 Apixaban [Eliquis] 5 mg PO BID 03/31/17 11/19/21 Ascorbic Acid [Vitamin C] 1,000 mg PO DAILY 06/28/17 11/19/21 Losartan [Cozaar] 25 mg PO HS 06/28/17 11/19/21 Previous Rx's Medication Instructions Recorded Nitroglycerin Sl Tabs [Nitrostat] 0.4 mg SUBLINGUAL Q5M PRN #25 tab 07/27/14 Metoprolol Succinate (ER) [Toprol 100 mg PO DAILY #30 tab.er.24h 06/29/17 XL] Acetaminophen-Codeine 300-30mg 1 tab PO Q6H PRN 3 Days #12 tablet 08/27/24 [Tylenol w/codeine #3] methocarbamoL [Robaxin] 1,000 mg PO TID PRN #18 tab 08/27/24 Allergies Allergy/AdvReac Type Severity Reaction Status Date / Time Penicillins Allergy Unknown Verified 08/27/24 09:51 Childhood Review of Systems ROS Statement: Those systems with pertinent positive or pertinent negative responses have been documented in the HPI. ROS Other: All systems not noted in ROS Statement are negative. Past Medical History Past Medical History: Atrial Fibrillation, Coronary Artery Disease (CAD), GI Bleed, Hyperlipidemia, Hypertension, Musculoskeletal Disorder Additional Past Medical History / Comment(s): past hx. Hematochezia/lower GI bleed-thought possibly d/t hemorrhoids but spouse states that was never confirmed, low platelets, past heel pain/fallen arches. see Dr Cabrera H & P History of Any Multi-Drug Resistant Organisms: None Reported Past Surgical History: Cardiac Ablation, Heart Catheterization With Stent Additional Past Surgical History / Comment(s): 07/26/14 RCA stenting, colonoscopy Past Anesthesia/Blood Transfusion Reactions: No Reported Reaction Date of Last Stent Placement:: 07/26/14 Past Psychological History: Anxiety Smoking Status: Current every day smoker Past Alcohol Use History: Daily Past Drug Use History: None Reported - Past Family History Father Family Medical History: CVA/TIA Additional Family Medical History / Comment(s): Father of brain stem CVA Mother Family Medical History: Cancer Additional Family Medical History / Comment(s): Mother is living. She had vaginal cancer with surgery. General Exam Limitations: no limitations General appearance: alert, in no apparent distress Head exam: Present: atraumatic, normocephalic, normal inspection Eye exam: Present: normal appearance, PERRL, EOMI. Absent: scleral icterus, conjunctival injection, periorbital swelling ENT exam: Present: normal exam, mucous membranes moist Neck exam: Present: normal inspection. Absent: tenderness, meningismus, lymphadenopathy Respiratory exam: Present: normal lung sounds bilaterally. Absent: respiratory distress, wheezes, rales, rhonchi, stridor Cardiovascular Exam: Present: normal rhythm, irregular rhythm, normal heart sounds. Absent: systolic murmur, diastolic murmur, rubs, gallop, clicks GI/Abdominal exam: Present: soft. Absent: distended, tenderness, guarding, rebound, rigid Extremities exam: Present: normal inspection, full ROM, normal capillary refill, other (DP and PT pulses 2+ bilaterally). Absent: tenderness, pedal edema, joint swelling, calf tenderness Back exam: Present: full ROM, tenderness Neurological exam: Present: alert, oriented X3 Psychiatric exam: Present: normal affect, normal mood Skin exam: Present: warm, dry, intact, normal color. Absent: rash Course Vital Signs 08/27/24 08/27/24 08/27/24 09:49 11:06 11:58 Temperature 97.9 F 97.9 F Pulse Rate 95 90 Respiratory 18 18 18 Rate Blood Pressure 113/82 112/80 O2 Sat by Pulse 99 99 Oximetry Medical Decision Making - Medical Decision Making Was pt. sent in by a medical professional or institution (, PA, LAB COORDINATOR, urgent care, hospital, or penitentiary...) When possible be specific @ -No Did you speak to anyone other than the patient for history (EMS, parent, family, police, friend...)? What history was obtained from this source @ -No Did you review nursing and triage notes (agree or disagree)? Why? @ -I reviewed and agree with nursing and triage notes Were old charts reviewed (outside hosp., previous admission, EMS record, old EKG, old radiological studies, urgent care reports/EKG's, penitentiary records)? Report findings @ -No old charts were reviewed Differential Diagnosis (chest pain, altered mental status, abdominal pain women, abdominal pain men, vaginal bleeding, weakness, fever, dyspnea, syncope, headache, dizziness, GI bleed, back pain, seizure, CVA, palpatations, mental health, musculoskeletal)? @ -Differential Back Pain: Strain, zoster, cauda equina syndrome, epidural abscess, vertebral osteomyelitis, discitis, fracture, subluxation, disc herniation, DJD, spinal stenosis, dissection, AAA, pancreatitis, peptic ulcer disease, pyelonephritis, kidney stone, this is not meant to be an all-inclusive list. EKG interpreted by me (3pts min.). @ -None X-rays interpreted by me (1pt min.). @ -X-ray of the lumbar spineThere is mild to moderate disc space narrowing at L3-L4, advanced to space narrowing L4-L5, moderate to severe anterior spurring CT interpreted by me (1pt min.). @ -None done U/S interpreted by me (1pt. min.). @ -None done What testing was considered but not performed or refused? (CT, X-rays, U/S, labs)? Why? @ -None What meds were considered but not given or refused? Why? @ -None Did you discuss the management of the patient with other professionals (professionals i.e. , PA, LAB COORDINATOR, lab, RT, psych nurse, social science teacher, livestock nutrition territory manager, teacher, affirmative action officer, housing case manager)? Give summary @ -No Was smoking cessation discussed for >3mins.? @ -No Was critical care preformed (if so, how long)? @ -No Were there social determinants of health that impacted care today? How? (Homelessness, low income, unemployed, alcoholism, drug addiction, transportation, low edu. Level, literacy, decrease access to med. care, skilled nursing, rehab)? @ -No Was there de-escalation of care discussed even if they declined (Discuss DNR or withdrawal of care, Hospice)? DNR status @ -No What co-morbidities impacted this encounter? (DM, HTN, Smoking, COPD, CAD, Cancer, CVA, ARF, Chemo, Hep., AIDS, mental health diagnosis, sleep apnea, morbid obesity)? @ -None Was patient admitted / discharged? Hospital course, mention meds given and route, prescriptions, significant lab abnormalities, going to OR and other pertinent info. @ -Discharge. Patient presented the emergency department for evaluation of low back pain. He does not have any red flag symptoms at this time. X-rays obtained of the lumbar spine which reveal disc space narrowing out L3-L4 and L4- L5 with moderate to severe anterior spurring. Patient was provided medication for pain control in the emergency department and has had significant improvement in his symptoms. Patient will be discharged home advised symptomatic treatment at home. He is understanding agreeable with plan. Patient stable at time of discharge. Case discussed with Dr. Brower Undiagnosed new problem with uncertain prognosis? @ -No Drug Therapy requiring intensive monitoring for toxicity (Heparin, Nitro, Insulin, Cardizem)? @ -No Were any procedures done? @ -No Diagnosis/symptom? @ -Low back pain Acute, or Chronic, or Acute on Chronic? @ -Acute Uncomplicated (without systemic symptoms) or Complicated (systemic symptoms)? @ -Uncomplicated Side effects of treatment? @ -No Exacerbation, Progression, or Severe Exacerbation? @ -No Poses a threat to life or bodily function? How? (Chest pain, [place], [place], pneumonia, PE, COPD, DKA, ARF, appy, cholecystitis, CVA, Diverticulitis, Homicidal, Suicidal, threat to staff... and all critical care pts) @ -No Disposition Clinical Impression: Mechanical back pain Disposition: HOME SELF-CARE Condition: Stable Instructions (If sedation given, give patient instructions): Acute Low Back Pain (ED) Additional Instructions: Please follow-up with your doctor. Return to the emergency department for new or worsening symptoms. Prescriptions: methocarbamoL [Robaxin] 1,000 mg PO TID PRN #18 tab PRN Reason: muscle spasms Acetaminophen-Codeine 300-30mg [Tylenol w/codeine #3] 1 tab PO Q6H PRN 3 Days #12 tablet PRN Reason: Pain Is patient prescribed a controlled substance at d/c from ED?: No Referrals: Carrington Abdi DO [Primary Care Provider] - 1-2 days
[2024-08-27] MEDS: ORPHENADRINE 30 MG/ML 2 ML VIAL IM STA (10:56)
[2024-08-27] MEDS: KETOROLAC 15 MG/ML 1 ML VIAL IM STA (10:56)
[2024-08-27] MEDS: LIDOCAINE 4% PATCH TOPICAL ONE (10:57)
--- NOTE | 2024-08-27 11:23 | XR ---
EXAMINATION TYPE: XR lumbar spine 2 or 3V DATE OF EXAM: 08/27/2024 CLINICAL INDICATION: Male, 59 years old with history of pain, pain TECHNIQUE: Frontal and lateral images of the lumbar spine are obtained. COMPARISON: None FINDINGS: There are 5 lumbar type vertebral bodies identified. The lumbar spine shows satisfactory alignment. Vertebral body heights are within normal limits. Mild to moderate disc space narrowing at L3-L4 level. Advanced disc space narrowing at L4-L5 level with moderate to severe anterior spurring. Moderate disc space narrowing at L5-S1 level. Some overlying arterial vascular calcification is prese nt. IMPRESSION: As above. [facility], , 08/27/2024 11:20 AM
[2024-08-27 11:59] VITALS: BP 112/80; PULSE 90
== END 2024-08-27 11:59 | disposition home or self-care (01) ==
LOC: EC 09:36
DX: M54.50 Low back pain, unspecified (principal); F17.200 Nicotine dependence, unspecified, uncomplicated; Z88.0 Allergy status to penicillin
CPT/HCPCS: 72100; 99284; 96372 ×2; J2360; J1885